=== PATIENT | female | born 1965 | race African-American/Black ===

== ENCOUNTER 2019-04-27 20:53 | Inpatient (IN) | payer MEDICAID ==
[~2019-04-27] VITALS: Ht 157.5 cm; Wt 90.7 kg
[~2019-04-27 20:53] MED LIST: LEVO500T2 PO; METR250T PO
[2019-04-27] MEDS ORDERED: MAGNESIUM 2 G PREMIX 50 ML IV STA (21:44)
[2019-04-27] MEDS ORDERED: ALBUTEROL (0.083%) 2.5MG/3ML NEB HHN STA (21:44)
[2019-04-27] MEDS ORDERED: METHYLPREDNISOLONE SOD SUCC 125 MG/2 ML VIAL IV STA (21:44)
[2019-04-27] MEDS ORDERED: IPRATROPIUM BROMIDE (0.02%) 0.5MG/2.5ML NEB HHN STA (21:44)
[2019-04-27] MEDS ORDERED: SODIUM CHLORIDE 0.9% 1000ML BAG (SEPSIS BOLUS) IV ONE (21:45)
[2019-04-27] MEDS ORDERED: PIPERACILLIN/TAZ 3.375G PREMIX 50 ML IV ONE (22:00)
[2019-04-27] MEDS ORDERED: PIPERACILLIN/TAZOBACTAM 3.375 G in DEXT 5% WATER 100 ML IV NR (22:30)
[2019-04-27 22:34] LABS: BASOPHILS % 1.4 % (0.0-2.0); EOSINOPHILS % 2.1 % (0.0-5.0); HEMOGLOBIN. 13.7 g/dL (12.0-16.0); LYMPHOCYTES % 34.1 % (20.0-50.0); MEAN CORPUSCULAR HEMOGLOBIN 30.9 pg (28.0-32.0); MEAN CORPUSCULAR VOLUME 92.7 fL (81.0-99.0); MEAN PLATELET VOLUME 10.3 fl (7.4-10.4); MONOCYTES % 6.6 % (2.0-8.0); NEUTROPHILS % 55.8 % (40.0-76.0); PLATELET 231 x1000/uL (130-400); RED BLOOD CELL COUNT 4.42 mill/uL (4.2-5.4)
[2019-04-27 22:40] LABS: INR 0.9; PROTHROMBIN TIME 9.5 sec (9.6-11.0)
[2019-04-27 22:46] LABS: CHLORIDE 104 mEq/L (98-107)
[2019-04-27 22:50] LABS: ETHANOL BLOOD 95 mg/dL
[2019-04-27 23:42] LABS: CLARITY URINE CLOUDY (CLEAR); COLOR URINE YELLOW (YELLOW); KETONES URINE 1+ (NEGATIVE); LEUKOCYTE ESTERASE URINE TRACE (NEGATIVE); NITRITE URINE NEGATIVE (NEGATIVE); OCCULT BLOOD URINE NEGATIVE (NEGATIVE); PROTEIN URINE 1+ (NEGATIVE); SPECIFIC GRAVITY URINE 1.024 (1.005-1.030)
[2019-04-27 23:55] LABS: *AMPHETAMINES SCREEN URINE NEGATIVE (NEGATIVE); *BARBITURATES SCREEN URINE NEGATIVE (NEGATIVE); *BENZODIAZEPINES SCREEN URINE NEGATIVE (NEGATIVE); *COCAINE SCREEN URINE NEGATIVE (NEGATIVE); CANNABINOID URINE SCREEN PRESUMTIVE POSITIVE (NEGATIVE); METHADONE URINE SCREEN NEGATIVE (NEGATIVE); OPIATES URINE SCREEN NEGATIVE (NEGATIVE); PHENCYCLIDINE URINE SCREEN NEGATIVE (NEGATIVE)
[2019-04-28] VITALS (9 sets, daily range): BP systolic 118–175; BP diastolic 76–105
[2019-04-28] MEDS ORDERED: ONDANSETRON HCL 4MG/2ML INJ IV PRN (01:00)
[2019-04-28] MEDS ORDERED: ACETAMINOPHEN 325MG TABLET PO PRN (01:00)
[2019-04-28] MEDS ORDERED: NON FORMULARY PATIENT HOME MED XX SCH (01:15)
[2019-04-28] MEDS ORDERED: BUDESONIDE 0.5MG/2ML NEB HHN SCH (01:17)
[2019-04-28] MEDS ORDERED: ALBUTEROL (0.083%) 2.5MG/3ML NEB HHN SCH (01:18)
[2019-04-28] MEDS: HYDROCODONE/ACETAMINOPHEN 5/325MG TABLET PO PRN ×3 (01:19→21:01)
[2019-04-28] MEDS: METHYLPREDNISOLONE SOD SUCC 40 MG/ML VIAL IV SCH ×4 (01:21→21:00)
[2019-04-28] MEDS: LEVOFLOXACIN 500MG PREMIX 100 ML IV SCH (01:55)
[2019-04-28] MEDS: IPRATROPIUM/ALBUTEROL 0.5-3(2.5)MG/3ML NEB HHN SCH ×5 (02:03→19:30)
[2019-04-28] MEDS ORDERED: OMEP20TA2 PO (02:54)
[2019-04-28] MEDS ORDERED: LEVE750T10 PO (02:54)
[2019-04-28] MEDS ORDERED: ARIP5TAB19 PO (02:54)
[2019-04-28] MEDS ORDERED: CARB200T6 PO (02:54)
[2019-04-28] MEDS ORDERED: IPRA42SP BOTHNSTRLS (02:59)
[2019-04-28] MEDS: OMEPRAZOLE 20MG CAPSULE EXTENDED RELEASE PO SCH (06:35)
[2019-04-28] MEDS: CARBAMAZEPINE 200MG TABLET PO SCH ×3 (08:39→17:00)
[2019-04-28] MEDS: ARIPIPRAZOLE 5MG TABLET PO SCH ×2 (08:40→17:00)
[2019-04-28] MEDS: LEVETIRACETAM 250MG TABLET PO SCH ×2 (08:43→17:00)
[2019-04-28] MEDS ORDERED: MEDICATION NOT ON FORMULARY EA (Levetiracetam 750 MG) PO SCH (09:00)
[2019-04-28] MEDS ORDERED: MEDICATION NOT ON FORMULARY EA (Omeprazole 20 MG) PO SCH (09:00)
[2019-04-28] MEDS ORDERED: AMLODIPINE 5MG TABLET PO SCH (09:00)
[2019-04-28 09:53] LABS: HEMATOCRIT 38.8 % (36.0-48.0); MEAN CORPUSCULAR HEMOGLOBIN 31.1 pg (28.0-32.0); PLATELET 192 x1000/uL (130-400); RED BLOOD CELL COUNT 4.17 mill/uL (4.2-5.4); RED CELL DISTRIBUTION WIDTH 14.7 % (11.6-14.6)
[2019-04-28 10:02] LABS: CHLORIDE 104 mEq/L (98-107)
[2019-04-28] MEDS ORDERED: CLONIDINE 0.1MG TABLET PO PRN (14:15)
[2019-04-28] MEDS: AMLODIPINE 5MG TABLET PO SCH ×2 (15:46→20:59)
[2019-04-28] MEDS: LOSARTAN POTASSIUM 50 MG TABLET PO SCH (15:47)
[2019-04-28] MEDS: GUAIFENESIN 600MG ER TABLET PO SCH ×2 (17:22→20:59)
[2019-04-29] VITALS: BP 117/84
[2019-04-29] MEDS: IPRATROPIUM/ALBUTEROL 0.5-3(2.5)MG/3ML NEB HHN SCH ×4 (02:10→16:24)
[2019-04-29] MEDS: LEVOFLOXACIN 500MG PREMIX 100 ML IV SCH (02:59)
[2019-04-29 04:00] VITALS: BP 122/76
[2019-04-29] MEDS: METHYLPREDNISOLONE SOD SUCC 40 MG/ML VIAL IV SCH ×2 (06:32→14:20)
[2019-04-29] MEDS: OMEPRAZOLE 20MG CAPSULE EXTENDED RELEASE PO SCH (06:32)
[2019-04-29 08:00] VITALS: BP 131/83
[2019-04-29] MEDS: ARIPIPRAZOLE 5MG TABLET PO SCH (09:00)
[2019-04-29] MEDS: LEVETIRACETAM 250MG TABLET PO SCH (09:00)
[2019-04-29] MEDS: CARBAMAZEPINE 200MG TABLET PO SCH ×3 (09:00→16:18)
[2019-04-29] MEDS ORDERED: THIAMINE HCL 100MG TABLET PO SCH (09:00)
[2019-04-29] MEDS: AMLODIPINE 5MG TABLET PO SCH (09:17)
[2019-04-29] MEDS: LOSARTAN POTASSIUM 50 MG TABLET PO SCH (09:17)
[2019-04-29] MEDS: GUAIFENESIN 600MG ER TABLET PO SCH (09:17)
[2019-04-29 12:00] VITALS: BP 130/88
[2019-04-29] MEDS: HYDROCODONE/ACETAMINOPHEN 5/325MG TABLET PO PRN (14:23)
[2019-04-29] MEDS ORDERED: FLUT1DIS3 INH (15:17)
[2019-04-29] MEDS ORDERED: LOSA100T32 MT (15:17)
[2019-04-29] MEDS ORDERED: ALBU18HF2 IH (15:17)
[2019-04-29] MEDS ORDERED: IPRA3AMP9 NEB (15:17)
[2019-04-29 16:00] VITALS: BP 122/78
[2019-04-29 16:43] VITALS: BP 122/78
[2019-04-29] MEDS ORDERED: FAMOTIDINE 20MG TABLET PO SCH (21:00)
== END 2019-04-29 17:25 | disposition home or self-care (01) | DRG 720 ==
LOC: ER 20:53 → 8WST 23:20 → EDBEDREQTM 23:25 → EDBEDREQSVC 23:25 → EDBEDREQ 23:25 → ENRESERV 23:29
PROVIDERS: ADMIT Internal Medicine; ATTEND Internal Medicine
DX: A41.9 Sepsis, unspecified organism (principal); J96.00 Acute respiratory failure, unspecified whether with hypoxia or hypercapnia; E87.2 Acidosis; J68.0 Bronchitis and pneumonitis due to chemicals, gases, fumes and vapors; I48.91 Unspecified atrial fibrillation; G40.909 Epilepsy, unspecified, not intractable, without status epilepticus; E66.9 Obesity, unspecified; T40.7X1A Poisoning by cannabis (derivatives), accidental (unintentional), initial encounter; F12.90 Cannabis use, unspecified, uncomplicated; J06.9 Acute upper respiratory infection, unspecified; R74.0 Nonspecific elevation of levels of transaminase and lactic acid dehydrogenase [LDH]; I10 Essential (primary) hypertension; F10.10 Alcohol abuse, uncomplicated; Z71.3 Dietary counseling and surveillance; Z87.891 Personal history of nicotine dependence; Y92.89 Other specified places as the place of occurrence of the external cause; Z79.899 Other long term (current) drug therapy; Z68.36 Body mass index [BMI] 36.0-36.9, adult
CPT/HCPCS: 36415; 71045; 80048; 80305; 80320; 81003; 83605; 83880; 84145; 84484; 85027; 87804; 93005; 94640; 94644; 96365; 99291; J1956; J2543; J2920; J2930; J3475; J7030; J7060; J7611; J7620; G0480

== ENCOUNTER 2019-05-30 01:45 | Emergency (ER) | payer MEDICAID ==
[~2019-05-30] VITALS: Ht 157.5 cm; Wt 91.0 kg
[~2019-05-30 01:45] MED LIST changes: +ALBU18HF2 IH; +ARIP5TAB19 PO; +CARB200T6 PO; +FLUT1DIS3 INH; +IPRA3AMP9 NEB; +IPRA42SP BOTHNSTRLS; +LEVE750T10 PO; -LEVO500T2 PO; +LOSA100T32 MT; -METR250T PO; +OMEP20TA2 PO
[2019-05-30 01:49] VITALS: BP 145/93
== END 2019-05-30 04:09 | disposition left against medical advice (07) ==
LOC: ER 02:10
DX: M25.561 Pain in right knee (principal); Z53.21 Procedure and treatment not carried out due to patient leaving prior to being seen by health care provider

== ENCOUNTER 2020-07-20 03:13 | Emergency (ER) | payer MEDICAID ==
[~2020-07-20] VITALS: Ht 175.3 cm; Wt 80.0 kg
[~2020-07-20 03:13] MED LIST changes: -ARIP5TAB19 PO; +ARIP5TAB58 PO
[2020-07-20] MEDS ORDERED: KETOROLAC 30MG/ML VIAL IV STA (03:41)
[2020-07-20 04:03] LABS: BASOPHILS % 0.8 % (0.0-2.0); EOSINOPHILS % 1.8 % (0.0-5.0); HEMATOCRIT. 40.7 % (36.0-48.0); HEMOGLOBIN. 13.1 g/dL (12.0-16.0); LYMPHOCYTES % 48.3 % (20.0-50.0); MEAN CORPUSCULAR HEMOGLOBIN 34.5 pg (28.0-32.0); MEAN CORPUSCULAR VOLUME 107.6 fL (81.0-99.0); MEAN PLATELET VOLUME 9.9 fl (7.4-10.4); MONOCYTES % 6.1 % (2.0-8.0); PLATELET 234 x1000/uL (130-400); RED BLOOD CELL COUNT 3.78 mill/uL (4.2-5.4); RED CELL DISTRIBUTION WIDTH 15.4 % (11.6-14.6)
[2020-07-20 04:13] LABS: CHLORIDE 98 mEq/L (98-107)
[2020-07-20 05:30] VITALS: BP 138/91
== END 2020-07-20 07:17 | disposition home or self-care (01) ==
LOC: ER 03:13
DX: S20.219A Contusion of unspecified front wall of thorax, initial encounter (principal); J45.909 Unspecified asthma, uncomplicated; Z79.899 Other long term (current) drug therapy; Y04.0XXA Assault by unarmed brawl or fight, initial encounter; Y93.89 Activity, other specified; Y92.89 Other specified places as the place of occurrence of the external cause; Y99.8 Other external cause status
CPT/HCPCS: 36415; 71045; 80053; 84484; 85025; 93005; 96374; 99285; J1885

== ENCOUNTER 2020-08-25 19:07 | Inpatient (IN) | payer MEDICAID ==
[~2020-08-25] VITALS: Ht 157.5 cm; Wt 80.5 kg
[2020-08-25 20:16] LABS: BASOPHILS % 0.5 % (0.0-2.0); EOSINOPHILS % 1.2 % (0.0-5.0); HEMATOCRIT. 38.9 % (36.0-48.0); HEMOGLOBIN. 12.9 g/dL (12.0-16.0); LYMPHOCYTES % 35.1 % (20.0-50.0); MEAN CORPUSCULAR HEMOGLOBIN 34.5 pg (28.0-32.0); MEAN CORPUSCULAR VOLUME 103.6 fL (81.0-99.0); MEAN PLATELET VOLUME 10.7 fl (7.4-10.4); NEUTROPHILS % 55.2 % (40.0-76.0); PLATELET 277 x1000/uL (130-400); RED BLOOD CELL COUNT 3.75 mill/uL (4.2-5.4); RED CELL DISTRIBUTION WIDTH 16.9 % (11.6-14.6)
[2020-08-25 20:24] LABS: CHLORIDE 107 mEq/L (98-107)
[2020-08-25 20:32] LABS: PROTHROMBIN TIME 10.6 sec (9.6-11.0)
[2020-08-25 20:47] LABS: CLARITY URINE CLOUDY (CLEAR); COLOR URINE DARK YELLOW (YELLOW); KETONES URINE 1+ (NEGATIVE); LEUKOCYTE ESTERASE URINE 1+ (NEGATIVE); NITRITE URINE NEGATIVE (NEGATIVE); OCCULT BLOOD URINE NEGATIVE (NEGATIVE); PROTEIN URINE 1+ (NEGATIVE); SPECIFIC GRAVITY URINE 1.028 (1.005-1.030)
[2020-08-25] MEDS ORDERED: MORPHINE SULFATE 4 MG/ML CPJ (NOT FOR IM USE) IV ONE (21:15)
[2020-08-25] MEDS ORDERED: IOHEXOL-300 100 ML BOTTLE ONE (22:13)
[2020-08-25] MEDS ORDERED: CEFTRIAXONE 1 G PREMIX 50 ML IV ONE (22:30)
[2020-08-25] MEDS ORDERED: KCL 10MEQ/50ML PREMIX 50 ML IV ONE (22:30)
[2020-08-26] MEDS: HYDROCODONE/ACETAMINOPHEN 5/325MG TABLET PO PRN ×3 (02:57→21:02)
[2020-08-26] MEDS ORDERED: HYDROCODONE/ACETAMINOPHEN 5/325MG TABLET PO PRN (08:00)
[2020-08-26] MEDS ORDERED: ACETAMINOPHEN 325MG TABLET PO PRN (08:00)
[2020-08-26] MEDS ORDERED: DOCUSATE SODIUM 100MG CAPSULE PO PRN (08:00)
[2020-08-26] MEDS ORDERED: LACTULOSE 20G/30ML UDC PO SCH (08:00)
[2020-08-26] MEDS ORDERED: CLONIDINE 0.1MG TABLET PO PRN (08:00)
[2020-08-26] MEDS ORDERED: MAGNESIUM/ALUMINUM HYDROXIDE/SIMETHICONE 30ML UDC PO PRN (08:00)
[2020-08-26 08:36] LABS: HEMATOCRIT 37.9 % (36.0-48.0); HEMOGLOBIN 12.1 g/dL (12.0-16.0); MEAN CORPUSCULAR HEMOGLOBIN 33.2 pg (28.0-32.0); MEAN CORPUSCULAR VOLUME 103.5 fL (81.0-99.0); PLATELET 229 x1000/uL (130-400); RED BLOOD CELL COUNT 3.66 mill/uL (4.2-5.4); RED CELL DISTRIBUTION WIDTH 16.9 % (11.6-14.6)
[2020-08-26 08:42] LABS: CHLORIDE 104 mEq/L (98-107)
[2020-08-26] MEDS: ENOXAPARIN 40MG/0.4ML SYR SUBCUT SCH (10:33)
[2020-08-26] MEDS: OMEPRAZOLE 20MG CAPSULE EXTENDED RELEASE PO SCH (10:34)
[2020-08-26 12:00] VITALS: BP 138/89
[2020-08-26 13:31] VITALS: BP 134/84
[2020-08-26] MEDS ORDERED: DOCUSATE SODIUM 250MG CAPSULE PO PRN (15:15)
[2020-08-26 16:00] VITALS: BP 130/80
[2020-08-26] MEDS: CEFTRIAXONE 1,000 MG in DEXTROSE 5% WATER 50 ML IV SCH (19:48)
[2020-08-26 20:00] VITALS: BP 140/80
[2020-08-26] MEDS ORDERED: CEFTRIAXONE 1 G PREMIX 50 ML IV SCH (21:00)
[2020-08-27] VITALS: BP 130/70
[2020-08-27 04:00] VITALS: BP 111/71
[2020-08-27] MEDS: OMEPRAZOLE 20MG CAPSULE EXTENDED RELEASE PO SCH ×2 (07:10→18:19)
[2020-08-27 07:50] LABS: BASOPHILS % 0.9 % (0.0-2.0); EOSINOPHILS % 2.4 % (0.0-5.0); HEMOGLOBIN. 12.1 g/dL (12.0-16.0); LYMPHOCYTES % 36.7 % (20.0-50.0); MEAN CORPUSCULAR HEMOGLOBIN 33.9 pg (28.0-32.0); MEAN PLATELET VOLUME 10.5 fl (7.4-10.4); MONOCYTES % 8.6 % (2.0-8.0); NEUTROPHILS % 51.4 % (40.0-76.0); PLATELET 243 x1000/uL (130-400); RED BLOOD CELL COUNT 3.56 mill/uL (4.2-5.4); RED CELL DISTRIBUTION WIDTH 16.8 % (11.6-14.6)
[2020-08-27 07:57] LABS: CHLORIDE 107 mEq/L (98-107)
[2020-08-27 08:00] VITALS: BP 123/74
[2020-08-27 08:04] LABS: PHOSPHORUS 3.7 mg/dL (2.5-4.9)
[2020-08-27] MEDS: ENOXAPARIN 40MG/0.4ML SYR SUBCUT SCH (08:39)
[2020-08-27] MEDS: HYDROCODONE/ACETAMINOPHEN 5/325MG TABLET PO PRN ×2 (11:00→18:19)
[2020-08-27 12:00] VITALS: BP_SYST 128; BP_SYST 131; BP_DIAS 69; BP_DIAS 91
[2020-08-27 13:18] LABS: HEPATITIS B SURFACE ANTIGEN NEGATIVE
[2020-08-27 13:48] LABS: HEPATITIS A AB IGM NEGATIVE (NEGATIVE)
[2020-08-27 16:00] VITALS: BP 154/86
[2020-08-27] MEDS: CEFTRIAXONE 1,000 MG in DEXTROSE 5% WATER 50 ML IV SCH (18:20)
[2020-08-27 20:00] VITALS: BP 129/71
[2020-08-28] VITALS: BP 141/80
[2020-08-28 04:00] VITALS: BP 138/78
[2020-08-28] MEDS: HYDROCODONE/ACETAMINOPHEN 5/325MG TABLET PO PRN ×4 (04:56→23:23)
[2020-08-28 08:00] VITALS: BP 125/78
[2020-08-28 09:33] LABS: CHLORIDE 106 mEq/L (98-107)
[2020-08-28 10:17] LABS: BASOPHILS % 0.2 % (0.0-2.0); EOSINOPHILS % 1.6 % (0.0-5.0); HEMATOCRIT. 36.8 % (36.0-48.0); LYMPHOCYTES % 37.2 % (20.0-50.0); MEAN CORPUSCULAR VOLUME 104.5 fL (81.0-99.0); MEAN PLATELET VOLUME 11.5 fl (7.4-10.4); MONOCYTES % 7.8 % (2.0-8.0); NEUTROPHILS % 53.2 % (40.0-76.0); PLATELET 217 x1000/uL (130-400); RED BLOOD CELL COUNT 3.52 mill/uL (4.2-5.4); RED CELL DISTRIBUTION WIDTH 17.5 % (11.6-14.6)
[2020-08-28 12:00] VITALS: BP 139/90
[2020-08-28] MEDS: ENOXAPARIN 40MG/0.4ML SYR SUBCUT SCH (12:14)
[2020-08-28] MEDS ORDERED: POTASSIUM CHLORIDE 20MEQ TABLET SR PO NR (13:45)
[2020-08-28 16:00] VITALS: BP 141/100
[2020-08-28] MEDS: CEFTRIAXONE 1,000 MG in DEXTROSE 5% WATER 50 ML IV SCH (17:53)
[2020-08-28 20:00] VITALS: BP 130/66
[2020-08-29] VITALS: BP 148/81
[2020-08-29 04:00] VITALS: BP 100/60
[2020-08-29] MEDS: OMEPRAZOLE 20MG CAPSULE EXTENDED RELEASE PO SCH (05:59)
[2020-08-29] MEDS: HYDROCODONE/ACETAMINOPHEN 5/325MG TABLET PO PRN ×4 (06:15→22:13)
[2020-08-29 08:00] VITALS: BP 121/65
[2020-08-29] MEDS: ENOXAPARIN 40MG/0.4ML SYR SUBCUT SCH (09:17)
[2020-08-29 09:28] LABS: BASOPHILS % 0.2 % (0.0-2.0); EOSINOPHILS % 2.1 % (0.0-5.0); HEMATOCRIT. 39.3 % (36.0-48.0); HEMOGLOBIN. 12.6 g/dL (12.0-16.0); LYMPHOCYTES % 52.9 % (20.0-50.0); MEAN CORPUSCULAR HEMOGLOBIN 33.8 pg (28.0-32.0); MEAN CORPUSCULAR VOLUME 105.5 fL (81.0-99.0); MEAN PLATELET VOLUME 11.4 fl (7.4-10.4); MONOCYTES % 10.7 % (2.0-8.0); NEUTROPHILS % 34.1 % (40.0-76.0); PLATELET 227 x1000/uL (130-400); RED BLOOD CELL COUNT 3.73 mill/uL (4.2-5.4); RED CELL DISTRIBUTION WIDTH 17.4 % (11.6-14.6)
[2020-08-29 09:54] LABS: CHLORIDE 107 mEq/L (98-107)
[2020-08-29 12:00] VITALS: BP 125/71
[2020-08-29 16:00] VITALS: BP 131/78
[2020-08-29] MEDS: CEFTRIAXONE 1,000 MG in DEXTROSE 5% WATER 50 ML IV SCH (17:37)
[2020-08-29 20:00] VITALS: BP 144/94
[2020-08-30] VITALS (7 sets, daily range): BP systolic 101–139; BP diastolic 62–92
[2020-08-30] MEDS: HYDROCODONE/ACETAMINOPHEN 5/325MG TABLET PO PRN ×4 (05:40→20:15)
[2020-08-30] MEDS: OMEPRAZOLE 20MG CAPSULE EXTENDED RELEASE PO SCH (06:45)
[2020-08-30] MEDS: ENOXAPARIN 40MG/0.4ML SYR SUBCUT SCH (08:39)
[2020-08-30] MEDS: LIDOCAINE 5% PATCH TOP SCH (08:39)
[2020-08-30] MEDS ORDERED: HYDR-4001 PO (13:31)
[2020-08-30] MEDS ORDERED: LACTULOSE 20G/30ML UDC PO PRN (15:30)
[2020-08-30] MEDS ORDERED: LACTULOSE 20G/30ML UDC PO NR (15:30)
[2020-08-31] VITALS: BP 143/93
[2020-08-31] MEDS: HYDROCODONE/ACETAMINOPHEN 5/325MG TABLET PO PRN (00:07)
[2020-08-31 04:00] VITALS: BP 111/48
[2020-08-31] MEDS: OMEPRAZOLE 20MG CAPSULE EXTENDED RELEASE PO SCH (06:37)
[2020-08-31 08:00] VITALS: BP 117/77
[2020-08-31] MEDS: ENOXAPARIN 40MG/0.4ML SYR SUBCUT SCH (08:22)
[2020-08-31] MEDS: LIDOCAINE 5% PATCH TOP SCH (08:22)
[2020-08-31] MEDS ORDERED: HYDROCODONE/ACETAMINOPHEN 5/325MG TABLET PO PRN (10:00)
[2020-08-31 12:00] VITALS: BP 122/80
[2020-08-31 12:34] VITALS: BP 122/80
== END 2020-08-31 15:35 | disposition home or self-care (01) | DRG 249 ==
LOC: ER 19:07 → 8WST 21:01 → ENRESERV 08-26 08:02 → EDBEDREQ 08-26 08:47
PROVIDERS: ADMIT Internal Medicine; ATTEND Internal Medicine
DX: K52.9 Noninfective gastroenteritis and colitis, unspecified (principal); E46 Unspecified protein-calorie malnutrition; E66.01 Morbid (severe) obesity due to excess calories; K83.8 Other specified diseases of biliary tract; M48.56XA Collapsed vertebra, not elsewhere classified, lumbar region, initial encounter for fracture; K21.9 Gastro-esophageal reflux disease without esophagitis; J45.909 Unspecified asthma, uncomplicated; G40.909 Epilepsy, unspecified, not intractable, without status epilepticus; E87.6 Hypokalemia; I10 Essential (primary) hypertension; N39.0 Urinary tract infection, site not specified; K59.00 Constipation, unspecified; R74.01 Elevation of levels of liver transaminase levels; Z90.49 Acquired absence of other specified parts of digestive tract; Z79.899 Other long term (current) drug therapy; Z71.3 Dietary counseling and surveillance; Z68.32 Body mass index [BMI] 32.0-32.9, adult
CPT/HCPCS: 36415; 72148; 74177; 76700; 80048; 80053; 80076; 81003; 83735; 84100; 84484; 85025; 85027; 86705; 86709; 86803; 87340; 97116; 97162; 97535; 99285; J0696; J1650; J2270; J3480; J7060; Q9967

== ENCOUNTER 2022-02-25 10:14 | Emergency (ER) | payer MEDICAID ==
[~2022-02-25] VITALS: Ht 170.2 cm; Wt 91.0 kg
[~2022-02-25 10:14] MED LIST changes: +HYDR-4001 PO; -OMEP20TA2 PO; +OMEP20TA23 PO
[2022-02-25] MEDS ORDERED: ONDANSETRON 4MG ODT PO STA (10:23)
[2022-02-25] MEDS ORDERED: MAGNESIUM/ALUMINUM HYDROXIDE/SIMETHICONE 30ML UDC PO STA (10:23)
[2022-02-25 11:33] LABS: BASOPHILS % 0.3 % (0.0-2.0); EOSINOPHILS % 0.1 % (0.0-5.0); HEMATOCRIT. 37.1 % (36.0-48.0); HEMOGLOBIN. 12.2 g/dL (12.0-16.0); LYMPHOCYTES % 14.3 % (20.0-50.0); MEAN CORPUSCULAR HEMOGLOBIN 37.7 pg (28.0-32.0); MEAN CORPUSCULAR VOLUME 114.6 fL (81.0-99.0); MEAN PLATELET VOLUME 10.8 fl (7.4-10.4); MONOCYTES % 6.5 % (2.0-8.0); NEUTROPHILS % 78.8 % (40.0-76.0); PLATELET 170 x1000/uL (130-400); RED BLOOD CELL COUNT 3.23 mill/uL (4.2-5.4); RED CELL DISTRIBUTION WIDTH 17.4 % (11.6-14.6)
[2022-02-25 11:40] LABS: CHLORIDE 102 mEq/L (98-107)
[2022-02-25] MEDS ORDERED: KETOROLAC 60MG/2ML VIAL IM ONE (11:45)
[2022-02-25 12:09] LABS: PLATELET ESTIMATE NORMAL
[2022-02-25] MEDS ORDERED: KETOROLAC 15MG/ML VIAL IV ONE (12:30)
[2022-02-25] MEDS ORDERED: ONDA4TAB50 MT (14:10)
[2022-02-25] MEDS ORDERED: OMEP40CA20 MT (14:10)
[2022-02-25 14:51] VITALS: BP 108/72
== END 2022-02-25 14:53 | disposition home or self-care (01) ==
LOC: ER 10:18
DX: R10.9 Unspecified abdominal pain (principal); R11.2 Nausea with vomiting, unspecified; J45.909 Unspecified asthma, uncomplicated; K21.9 Gastro-esophageal reflux disease without esophagitis; I10 Essential (primary) hypertension; R56.9 Unspecified convulsions
CPT/HCPCS: 36415; 74176; 80053; 83690; 85025; 96372; 96374; 99284; J1885; Q0162

== ENCOUNTER 2022-03-21 13:29 | Inpatient (IN) | payer MEDICAID ==
[~2022-03-21] VITALS: Ht 157.5 cm; Wt 67.6 kg
[~2022-03-21 13:29] MED LIST changes: +OMEP40CA20 MT; +ONDA4TAB50 MT
[2022-03-21] MEDS ORDERED: SODIUM CHLORIDE 0.9% 500 ML IV ONE (14:30)
[2022-03-21 15:39] LABS: BASOPHILS % 0.8 % (0.0-2.0); EOSINOPHILS % 0.9 % (0.0-5.0); HEMATOCRIT. 34.2 % (36.0-48.0); HEMOGLOBIN. 11.6 g/dL (12.0-16.0); LYMPHOCYTES % 50.9 % (20.0-50.0); MEAN CORPUSCULAR HEMOGLOBIN 37.6 pg (28.0-32.0); MEAN CORPUSCULAR VOLUME 111.3 fL (81.0-99.0); MEAN PLATELET VOLUME 11.2 fl (7.4-10.4); NEUTROPHILS % 35.4 % (40.0-76.0); PLATELET 204 x1000/uL (130-400); RED BLOOD CELL COUNT 3.08 mill/uL (4.2-5.4); RED CELL DISTRIBUTION WIDTH 16.4 % (11.6-14.6)
[2022-03-21 16:01] LABS: CHLORIDE 100 mEq/L (98-107)
[2022-03-21 16:40] LABS: PLATELET ESTIMATE NORMAL
[2022-03-21] MEDS: CYANOCOBALAMIN 1000MCG/ML VIAL IM SCH (18:12)
[2022-03-21] MEDS ORDERED: IPRATROPIUM/ALBUTEROL 0.5-3(2.5)MG/3ML NEB HHN PRN (19:30)
[2022-03-21] MEDS ORDERED: ONDANSETRON HCL 4MG/2ML INJ IV PRN (19:30)
[2022-03-21] MEDS ORDERED: NALOXONE HCL 0.4MG/ML VIAL IV PRN (19:45)
[2022-03-22] VITALS (7 sets, daily range): BP systolic 105–163; BP diastolic 61–97
[2022-03-22] MEDS: CLONIDINE 0.1MG TABLET PO PRN (04:27)
[2022-03-22 06:37] LABS: EOSINOPHILS % 1.1 % (0.0-5.0); HEMATOCRIT. 32.7 % (36.0-48.0); HEMOGLOBIN. 10.9 g/dL (12.0-16.0); LYMPHOCYTES % 44.4 % (20.0-50.0); MEAN CORPUSCULAR HEMOGLOBIN 37.9 pg (28.0-32.0); MEAN CORPUSCULAR VOLUME 113.2 fL (81.0-99.0); MEAN PLATELET VOLUME 11.2 fl (7.4-10.4); MONOCYTES % 12.6 % (2.0-8.0); NEUTROPHILS % 40.9 % (40.0-76.0); PLATELET 194 x1000/uL (130-400); RED BLOOD CELL COUNT 2.89 mill/uL (4.2-5.4)
[2022-03-22 08:50] LABS: CHLORIDE 106 mEq/L (98-107)
[2022-03-22] MEDS: CYANOCOBALAMIN 1000MCG/ML VIAL IM SCH (09:21)
[2022-03-22] MEDS ORDERED: POTASSIUM CHLORIDE 20MEQ/PACKET PO NR (10:15)
[2022-03-22] MEDS ORDERED: POTASSIUM CHLORIDE INJ 40 MEQ in DEXT 5% WATER 250 ML IV ONE (10:15)
[2022-03-22] MEDS ORDERED: LORAZEPAM 2MG/ML CPJ IV PRN (13:30)
[2022-03-22] MEDS: KCL 20MEQ/100ML X 2 FOR TOTAL KCL 40MEQ/200ML IV SCH ×2 (13:52→15:50)
[2022-03-22] MEDS: ACETAMINOPHEN 325MG TABLET PO PRN (13:54)
[2022-03-22] MEDS: LOSARTAN POTASSIUM 100 MG TABLET PO SCH (15:50)
[2022-03-22] MEDS ORDERED: ARIPIPRAZOLE 5MG TABLET PO SCH (17:00)
[2022-03-22] MEDS: CHLORDIAZEPOXIDE 25MG CAPSULE PO SCH (21:08)
[2022-03-22] MEDS: LEVETIRACETAM 500MG TABLET PO SCH (21:20)
[2022-03-23] VITALS: BP 110/80
[2022-03-23 04:00] VITALS: BP 105/74
[2022-03-23] MEDS: CHLORDIAZEPOXIDE 25MG CAPSULE PO SCH ×5 (05:36→21:00)
[2022-03-23] MEDS: CYANOCOBALAMIN 1000MCG/ML VIAL IM SCH (09:47)
[2022-03-23] MEDS: LEVETIRACETAM 500MG TABLET PO SCH ×2 (09:48→20:55)
[2022-03-23] MEDS: OMEPRAZOLE 20MG CAPSULE EXTENDED RELEASE PO SCH (09:48)
[2022-03-23] MEDS: LOSARTAN POTASSIUM 100 MG TABLET PO SCH (09:49)
[2022-03-23 12:00] VITALS: BP 113/77
[2022-03-23 16:00] VITALS: BP 113/73
[2022-03-23 17:38] LABS: BASOPHILS % 0.5 % (0.0-2.0); EOSINOPHILS % 2.9 % (0.0-5.0); HEMATOCRIT. 32.8 % (36.0-48.0); HEMOGLOBIN. 10.9 g/dL (12.0-16.0); LYMPHOCYTES % 60.1 % (20.0-50.0); MEAN CORPUSCULAR HEMOGLOBIN 37.6 pg (28.0-32.0); MEAN CORPUSCULAR VOLUME 112.8 fL (81.0-99.0); MONOCYTES % 8.8 % (2.0-8.0); NEUTROPHILS % 27.7 % (40.0-76.0); PLATELET 222 x1000/uL (130-400); RED CELL DISTRIBUTION WIDTH 16.7 % (11.6-14.6)
[2022-03-23 18:04] LABS: CHLORIDE 109 mEq/L (98-107)
[2022-03-23] MEDS: CARBAMAZEPINE 200MG TABLET PO SCH (18:50)
[2022-03-24] VITALS (7 sets, daily range): BP systolic 97–127; BP diastolic 66–82
[2022-03-24] MEDS: CHLORDIAZEPOXIDE 25MG CAPSULE PO SCH ×3 (05:07→20:36)
[2022-03-24] MEDS: LOSARTAN POTASSIUM 100 MG TABLET PO SCH (08:16)
[2022-03-24] MEDS: OMEPRAZOLE 20MG CAPSULE EXTENDED RELEASE PO SCH (08:16)
[2022-03-24] MEDS: LEVETIRACETAM 500MG TABLET PO SCH ×2 (08:16→20:36)
[2022-03-24] MEDS: CARBAMAZEPINE 200MG TABLET PO SCH ×3 (09:33→16:37)
[2022-03-24 14:43] LABS: PROTHROMBIN TIME 10.4 sec (9.6-11.0)
[2022-03-24] MEDS ORDERED: *PATIENT'S OWN MEDICATION STORAGE XX SCH (21:45)
[2022-03-25] MEDS: MORPHINE SULFATE 2 MG/ML CPJ (NOT FOR IM USE) IV PRN ×2 (00:04→05:34)
[2022-03-25 04:00] VITALS: BP 99/62
[2022-03-25] MEDS: CHLORDIAZEPOXIDE 25MG CAPSULE PO SCH ×3 (05:31→20:59)
[2022-03-25 08:00] VITALS: BP_SYST 107; BP_SYST 121; BP_DIAS 72; BP_DIAS 75
[2022-03-25 08:31] LABS: BASOPHILS % 0.4 % (0.0-2.0); EOSINOPHILS % 2.9 % (0.0-5.0); HEMATOCRIT. 32.3 % (36.0-48.0); HEMOGLOBIN. 10.5 g/dL (12.0-16.0); LYMPHOCYTES % 47.3 % (20.0-50.0); MEAN CORPUSCULAR VOLUME 113.5 fL (81.0-99.0); MEAN PLATELET VOLUME 11.2 fl (7.4-10.4); NEUTROPHILS % 41.4 % (40.0-76.0); PLATELET 208 x1000/uL (130-400); RED BLOOD CELL COUNT 2.85 mill/uL (4.2-5.4); RED CELL DISTRIBUTION WIDTH 17.2 % (11.6-14.6)
[2022-03-25] MEDS: CARBAMAZEPINE 200MG TABLET PO SCH ×3 (08:44→17:10)
[2022-03-25] MEDS: LOSARTAN POTASSIUM 100 MG TABLET PO SCH (08:44)
[2022-03-25] MEDS: LEVETIRACETAM 500MG TABLET PO SCH ×2 (08:44→20:59)
[2022-03-25] MEDS: FAMOTIDINE 20MG TABLET PO SCH ×2 (08:44→20:59)
[2022-03-25 08:57] LABS: CHLORIDE 110 mEq/L (98-107)
[2022-03-25 12:00] VITALS: BP 95/57
[2022-03-25] MEDS ORDERED: POTASSIUM CHLORIDE 20MEQ TABLET SR PO NR (13:00)
[2022-03-25 14:18] LABS: PLATELET ESTIMATE NORMAL
[2022-03-25 16:00] VITALS: BP 102/68
[2022-03-25 20:22] VITALS: BP 125/87
[2022-03-26] VITALS (7 sets, daily range): BP systolic 125–158; BP diastolic 78–109
[2022-03-26] MEDS: CHLORDIAZEPOXIDE 25MG CAPSULE PO SCH (05:48)
[2022-03-26 06:53] LABS: BASOPHILS % 0.5 % (0.0-2.0); EOSINOPHILS % 1.1 % (0.0-5.0); HEMATOCRIT. 33.5 % (36.0-48.0); HEMOGLOBIN. 11.3 g/dL (12.0-16.0); LYMPHOCYTES % 33.3 % (20.0-50.0); MEAN CORPUSCULAR HEMOGLOBIN 37.7 pg (28.0-32.0); MEAN CORPUSCULAR VOLUME 112.3 fL (81.0-99.0); MEAN PLATELET VOLUME 11.1 fl (7.4-10.4); NEUTROPHILS % 57.1 % (40.0-76.0); PLATELET 246 x1000/uL (130-400); RED BLOOD CELL COUNT 2.98 mill/uL (4.2-5.4); RED CELL DISTRIBUTION WIDTH 17.2 % (11.6-14.6)
[2022-03-26 07:00] LABS: CHLORIDE 111 mEq/L (98-107)
[2022-03-26] MEDS: FAMOTIDINE 20MG TABLET PO SCH ×2 (09:44→20:49)
[2022-03-26] MEDS: LOSARTAN POTASSIUM 100 MG TABLET PO SCH (09:44)
[2022-03-26] MEDS: LEVETIRACETAM 500MG TABLET PO SCH ×2 (09:44→20:49)
[2022-03-26] MEDS: CARBAMAZEPINE 200MG TABLET PO SCH ×3 (09:44→17:00)
[2022-03-26] MEDS ORDERED: NALOXONE HCL 0.4 MG/ML 1ML VIAL IV ONE (12:30)
[2022-03-26 13:29] LABS: BG BASE EXCESS 0.3 mmol/L (-2.0-2.0); BG CARBOXYHEMOGLOBIN 0.1 % (0.5-1.5); BG DEOXYHEMOGLOBIN 3.8 % (0.0-5.0); BG FRACTION INSPIRED OXYGEN 21; BG METHEMOGLOBIN 0.2 % (0.0-1.5); BG OXYGEN SATURATION 96.2 % (92.0-98.5); BG OXYHEMOGLOBIN 95.9 % (94.0-97.0); BG PCO2 35.5 mmHg (35.0-45.0); BG PH 7.447 (7.350-7.450); BG SAMPLE SITE RIGHT BRACHIAL; BG TOTAL HEMOGLOBIN 12.1 g/dL (12.0-18.0); BG VENT MODE ROOM AIR
[2022-03-27 00:22] VITALS: BP 155/105
[2022-03-27 04:00] VITALS: BP 145/100
[2022-03-27 08:00] VITALS: BP 117/54
[2022-03-27] MEDS: CARBAMAZEPINE 200MG TABLET PO SCH ×3 (09:00→17:00)
[2022-03-27] MEDS: LOSARTAN POTASSIUM 100 MG TABLET PO SCH (09:00)
[2022-03-27] MEDS: FAMOTIDINE 20MG TABLET PO SCH ×2 (09:00→20:42)
[2022-03-27] MEDS: LEVETIRACETAM 500MG TABLET PO SCH ×2 (09:00→20:41)
[2022-03-27 12:00] VITALS: BP 150/105
[2022-03-27] MEDS ORDERED: THIAMINE HCL 100 MG in SODIUM CHLORIDE 0.9% 49 ML IV NR (13:30)
[2022-03-27] MEDS: SODIUM CHLORIDE 0.9% 1,000 ML IV SCH (15:43)
[2022-03-27 16:00] VITALS: BP 152/103
[2022-03-27 20:00] VITALS: BP 162/110
[2022-03-27] MEDS: CLONIDINE 0.1MG TABLET PO PRN (20:42)
[2022-03-28] VITALS: BP 146/91
[2022-03-28] MEDS: SODIUM CHLORIDE 0.9% 1,000 ML IV SCH ×2 (01:50→18:00)
[2022-03-28 04:00] VITALS: BP 166/106
[2022-03-28 06:32] LABS: BASOPHILS % 0.5 % (0.0-2.0); EOSINOPHILS % 1.9 % (0.0-5.0); HEMATOCRIT. 37.6 % (36.0-48.0); HEMOGLOBIN. 12.4 g/dL (12.0-16.0); LYMPHOCYTES % 32.1 % (20.0-50.0); MEAN CORPUSCULAR HEMOGLOBIN 37.1 pg (28.0-32.0); MEAN PLATELET VOLUME 10.8 fl (7.4-10.4); MONOCYTES % 8.4 % (2.0-8.0); NEUTROPHILS % 57.1 % (40.0-76.0); PLATELET 260 x1000/uL (130-400); RED BLOOD CELL COUNT 3.33 mill/uL (4.2-5.4); RED CELL DISTRIBUTION WIDTH 16.9 % (11.6-14.6)
[2022-03-28 06:34] LABS: PROTHROMBIN TIME 11.1 sec (9.6-11.0)
[2022-03-28 06:56] LABS: CHLORIDE 109 mEq/L (98-107)
[2022-03-28 08:00] VITALS: BP 154/97
[2022-03-28] MEDS: FAMOTIDINE 20MG TABLET PO SCH ×2 (09:25→21:14)
[2022-03-28] MEDS: LOSARTAN POTASSIUM 100 MG TABLET PO SCH (09:25)
[2022-03-28] MEDS: CARBAMAZEPINE 200MG TABLET PO SCH ×3 (09:25→18:00)
[2022-03-28] MEDS: LEVETIRACETAM 500MG TABLET PO SCH ×2 (09:26→21:14)
[2022-03-28 12:00] VITALS: BP 163/107
[2022-03-28] MEDS ORDERED: THIAMINE HCL 100 MG in SODIUM CHLORIDE 0.9% 49 ML IV NR (13:30)
[2022-03-28 16:00] VITALS: BP 134/72
[2022-03-28 19:56] LABS: CLARITY URINE CLOUDY (CLEAR); COLOR URINE YELLOW (YELLOW); KETONES URINE 1+ (NEGATIVE); LEUKOCYTE ESTERASE URINE 3+ (NEGATIVE); NITRITE URINE NEGATIVE (NEGATIVE); OCCULT BLOOD URINE NEGATIVE (NEGATIVE); PROTEIN URINE NEGATIVE (NEGATIVE); SPECIFIC GRAVITY URINE 1.014 (1.005-1.030); UROBILINOGEN URINE 0.2 E.U./dL (0.2-1.0)
[2022-03-28 20:00] VITALS: BP 155/98
[2022-03-28 20:34] LABS: *AMPHETAMINES SCREEN URINE NEGATIVE (NEGATIVE); *BARBITURATES SCREEN URINE NEGATIVE (NEGATIVE); *BENZODIAZEPINES SCREEN URINE PRESUMTIVE POSITIVE (NEGATIVE); *COCAINE SCREEN URINE NEGATIVE (NEGATIVE); CANNABINOID URINE SCREEN PRESUMTIVE POSITIVE (NEGATIVE); METHADONE URINE SCREEN NEGATIVE (NEGATIVE); OPIATES URINE SCREEN PRESUMTIVE POSITIVE (NEGATIVE); PHENCYCLIDINE URINE SCREEN NEGATIVE (NEGATIVE)
[2022-03-29] VITALS: BP 137/93
[2022-03-29 04:00] VITALS: BP 158/97
[2022-03-29] MEDS: SODIUM CHLORIDE 0.9% 1,000 ML IV SCH (05:25)
[2022-03-29 06:15] LABS: CHLORIDE 111 mEq/L (98-107)
[2022-03-29 06:29] LABS: BASOPHILS % 0.8 % (0.0-2.0); EOSINOPHILS % 2.8 % (0.0-5.0); HEMATOCRIT. 38.4 % (36.0-48.0); HEMOGLOBIN. 12.4 g/dL (12.0-16.0); LYMPHOCYTES % 34.5 % (20.0-50.0); MEAN CORPUSCULAR HEMOGLOBIN 36.7 pg (28.0-32.0); MEAN CORPUSCULAR VOLUME 113.3 fL (81.0-99.0); MEAN PLATELET VOLUME 10.3 fl (7.4-10.4); MONOCYTES % 9.5 % (2.0-8.0); NEUTROPHILS % 52.4 % (40.0-76.0); PLATELET 240 x1000/uL (130-400); RED BLOOD CELL COUNT 3.39 mill/uL (4.2-5.4); RED CELL DISTRIBUTION WIDTH 16.8 % (11.6-14.6)
[2022-03-29 08:00] VITALS: BP 164/129
[2022-03-29] MEDS: CARBAMAZEPINE 200MG TABLET PO SCH ×3 (08:35→17:50)
[2022-03-29] MEDS: FAMOTIDINE 20MG TABLET PO SCH ×2 (08:35→22:20)
[2022-03-29] MEDS: LOSARTAN POTASSIUM 100 MG TABLET PO SCH (08:35)
[2022-03-29] MEDS: LEVETIRACETAM 500MG TABLET PO SCH ×2 (08:35→22:20)
[2022-03-29 12:00] VITALS: BP 164/100
[2022-03-29 16:00] VITALS: BP 167/95
[2022-03-29 20:00] VITALS: BP 139/93
[2022-03-30] VITALS: BP 143/93
[2022-03-30] MEDS ORDERED: TRAM50TA3 MT (03:15)
[2022-03-30] MEDS ORDERED: IBUP-2029 PO (03:15)
[2022-03-30 04:00] VITALS: BP 143/93
[2022-03-30] MEDS: SODIUM CHLORIDE 0.9% 1,000 ML IV SCH ×2 (06:48→22:30)
[2022-03-30 07:38] LABS: BASOPHILS % 0.8 % (0.0-2.0); EOSINOPHILS % 0.8 % (0.0-5.0); HEMATOCRIT. 36.9 % (36.0-48.0); HEMOGLOBIN. 12.1 g/dL (12.0-16.0); MEAN CORPUSCULAR HEMOGLOBIN 36.4 pg (28.0-32.0); MEAN CORPUSCULAR VOLUME 110.4 fL (81.0-99.0); MEAN PLATELET VOLUME 11.6 fl (7.4-10.4); MONOCYTES % 8.8 % (2.0-8.0); NEUTROPHILS % 56.6 % (40.0-76.0); PLATELET 273 x1000/uL (130-400); RED BLOOD CELL COUNT 3.34 mill/uL (4.2-5.4); RED CELL DISTRIBUTION WIDTH 16.6 % (11.6-14.6)
[2022-03-30 08:00] VITALS: BP 161/91
[2022-03-30] MEDS: CARBAMAZEPINE 200MG TABLET PO SCH ×3 (08:36→16:08)
[2022-03-30] MEDS: LOSARTAN POTASSIUM 100 MG TABLET PO SCH (08:36)
[2022-03-30] MEDS: FAMOTIDINE 20MG TABLET PO SCH ×2 (08:36→22:30)
[2022-03-30] MEDS: LEVETIRACETAM 500MG TABLET PO SCH ×2 (08:37→20:23)
[2022-03-30 08:53] LABS: CHLORIDE 110 mEq/L (98-107)
[2022-03-30 12:00] VITALS: BP 158/102
[2022-03-30 16:00] VITALS: BP 152/109
[2022-03-30 20:00] VITALS: BP 138/87
[2022-03-31] VITALS: BP 148/111
[2022-03-31 04:00] VITALS: BP 136/76
[2022-03-31] MEDS ORDERED: POTASSIUM CHLORIDE 20MEQ TABLET SR PO NR (06:00)
[2022-03-31 08:00] VITALS: BP 156/111
[2022-03-31] MEDS: LEVETIRACETAM 500MG TABLET PO SCH ×2 (09:00→21:00)
[2022-03-31] MEDS: CARBAMAZEPINE 200MG TABLET PO SCH ×3 (09:00→16:01)
[2022-03-31] MEDS: FAMOTIDINE 20MG TABLET PO SCH ×2 (09:07→21:18)
[2022-03-31] MEDS: SODIUM CHLORIDE 0.9% 1,000 ML IV SCH (09:07)
[2022-03-31] MEDS: LOSARTAN POTASSIUM 100 MG TABLET PO SCH (09:07)
[2022-03-31 15:20] LABS: CHLORIDE 112 mEq/L (98-107); EOSINOPHILS % 1.2 % (0.0-5.0); HEMATOCRIT. 38.3 % (36.0-48.0); HEMOGLOBIN. 12.1 g/dL (12.0-16.0); LYMPHOCYTES % 34.4 % (20.0-50.0); MEAN CORPUSCULAR HEMOGLOBIN 36.2 pg (28.0-32.0); MEAN CORPUSCULAR VOLUME 114.2 fL (81.0-99.0); MEAN PLATELET VOLUME 11.2 fl (7.4-10.4); MONOCYTES % 9.8 % (2.0-8.0); NEUTROPHILS % 53.6 % (40.0-76.0); PLATELET 253 x1000/uL (130-400); RED BLOOD CELL COUNT 3.35 mill/uL (4.2-5.4); RED CELL DISTRIBUTION WIDTH 16.9 % (11.6-14.6)
[2022-03-31] MEDS ORDERED: POTASSIUM CHLORIDE INJ 40 MEQ in DEXT 5% WATER 250 ML IV ONE (16:00)
[2022-03-31] MEDS: KCL 20MEQ/100ML X 2 FOR TOTAL KCL 40MEQ/200ML IV SCH ×2 (16:08→18:12)
[2022-03-31 20:00] VITALS: BP 157/118
[2022-04-01] VITALS: BP 146/101
[2022-04-01 04:00] VITALS: BP 159/108
[2022-04-01 08:00] VITALS: BP 138/64
[2022-04-01] MEDS: FAMOTIDINE 20MG TABLET PO SCH ×2 (09:07→20:43)
[2022-04-01] MEDS: LOSARTAN POTASSIUM 100 MG TABLET PO SCH (09:07)
[2022-04-01] MEDS: CARBAMAZEPINE 200MG TABLET PO SCH ×3 (09:07→18:14)
[2022-04-01] MEDS: LEVETIRACETAM 500MG TABLET PO SCH (09:08)
[2022-04-01 12:00] VITALS: BP 133/83
[2022-04-01 16:00] VITALS: BP 138/66
[2022-04-01 17:56] LABS: *AMPHETAMINES SCREEN URINE NEGATIVE (NEGATIVE); *BARBITURATES SCREEN URINE NEGATIVE (NEGATIVE); *BENZODIAZEPINES SCREEN URINE PRESUMTIVE POSITIVE (NEGATIVE); *COCAINE SCREEN URINE NEGATIVE (NEGATIVE); CANNABINOID URINE SCREEN PRESUMTIVE POSITIVE (NEGATIVE); METHADONE URINE SCREEN NEGATIVE (NEGATIVE); OPIATES URINE SCREEN NEGATIVE (NEGATIVE); PHENCYCLIDINE URINE SCREEN NEGATIVE (NEGATIVE)
[2022-04-01 20:00] VITALS: BP 185/114
[2022-04-01] MEDS: CLONIDINE 0.1MG TABLET PO PRN (20:43)
[2022-04-01] MEDS: LEVETIRACETAM 250MG TABLET PO SCH (20:44)
[2022-04-01] MEDS: SODIUM CHLORIDE 0.9% 1,000 ML IV SCH (20:44)
[2022-04-02] VITALS: BP 159/112
[2022-04-02] MEDS: HYDRALAZINE 20MG/ML VIAL IV PRN (01:56)
[2022-04-02 04:00] VITALS: BP 146/106
[2022-04-02 08:00] VITALS: BP 135/86
[2022-04-02] MEDS: LOSARTAN POTASSIUM 100 MG TABLET PO SCH (09:00)
[2022-04-02] MEDS: FAMOTIDINE 20MG TABLET PO SCH ×2 (09:00→21:09)
[2022-04-02] MEDS: LEVETIRACETAM 250MG TABLET PO SCH ×2 (09:00→21:09)
[2022-04-02 10:40] VITALS: BP 135/82
[2022-04-02] MEDS: SODIUM CHLORIDE 0.9% 1,000 ML IV SCH ×2 (16:08→21:09)
[2022-04-02 20:00] VITALS: BP 153/106
[2022-04-02] MEDS: CLONIDINE 0.1MG TABLET PO PRN (21:14)
[2022-04-03] VITALS: BP 153/93
[2022-04-03] MEDS: DIPHENHYDRAMINE 50MG/ML VIAL IV PRN (03:36)
[2022-04-03 04:00] VITALS: BP 156/95
[2022-04-03] MEDS: LOSARTAN POTASSIUM 100 MG TABLET PO SCH (08:35)
[2022-04-03] MEDS: LEVETIRACETAM 250MG TABLET PO SCH ×2 (08:35→20:53)
[2022-04-03] MEDS: FAMOTIDINE 20MG TABLET PO SCH ×2 (08:35→20:53)
[2022-04-03 11:38] VITALS: BP 150/77
[2022-04-03 12:00] VITALS: BP 150/77
[2022-04-03 16:00] VITALS: BP 150/83
[2022-04-03] MEDS: SODIUM CHLORIDE 0.9% 1,000 ML IV SCH (18:23)
[2022-04-03 20:00] VITALS: BP 177/111
[2022-04-03] MEDS: QUETIAPINE FUMARATE 25MG TABLET PO SCH (20:53)
[2022-04-03] MEDS: CLONIDINE 0.1MG TABLET PO PRN (21:00)
[2022-04-04] VITALS: BP 174/102
[2022-04-04] MEDS: HYDRALAZINE 20MG/ML VIAL IV PRN (00:55)
[2022-04-04 04:00] VITALS: BP 151/100
[2022-04-04] MEDS: SODIUM CHLORIDE 0.9% 1,000 ML IV SCH ×2 (06:59→20:55)
[2022-04-04] MEDS: LOSARTAN POTASSIUM 100 MG TABLET PO SCH (09:09)
[2022-04-04] MEDS: LEVETIRACETAM 250MG TABLET PO SCH ×2 (09:09→20:55)
[2022-04-04] MEDS: FAMOTIDINE 20MG TABLET PO SCH ×2 (09:09→20:55)
[2022-04-04] MEDS: DIPHENHYDRAMINE 50MG/ML VIAL IV PRN (09:09)
[2022-04-04] MEDS: QUETIAPINE FUMARATE 25MG TABLET PO SCH ×2 (09:09→20:55)
[2022-04-04 12:00] VITALS: BP 130/91
[2022-04-04 16:00] VITALS: BP 178/109
[2022-04-04 20:00] VITALS: BP 110/72
[2022-04-05] VITALS: BP 129/84
[2022-04-05 04:00] VITALS: BP 133/90
[2022-04-05 08:00] VITALS: BP 148/100
[2022-04-05 08:42] LABS: BASOPHILS % 0.6 % (0.0-2.0); EOSINOPHILS % 1.7 % (0.0-5.0); HEMOGLOBIN. 12.3 g/dL (12.0-16.0); LYMPHOCYTES % 38.5 % (20.0-50.0); MEAN CORPUSCULAR HEMOGLOBIN 35.5 pg (28.0-32.0); MEAN PLATELET VOLUME 12.8 fl (7.4-10.4); NEUTROPHILS % 51.2 % (40.0-76.0); PLATELET 231 x1000/uL (130-400); RED BLOOD CELL COUNT 3.46 mill/uL (4.2-5.4); RED CELL DISTRIBUTION WIDTH 17.1 % (11.6-14.6)
[2022-04-05 09:08] LABS: CHLORIDE 110 mEq/L (98-107)
[2022-04-05 09:33] LABS: PHOSPHORUS 3.4 mg/dL (2.5-4.9)
[2022-04-05] MEDS: DOCUSATE SODIUM 100MG CAPSULE PO SCH ×2 (09:52→17:28)
[2022-04-05] MEDS: FAMOTIDINE 20MG TABLET PO SCH ×2 (09:52→20:25)
[2022-04-05] MEDS: QUETIAPINE FUMARATE 25MG TABLET PO SCH ×2 (09:52→20:25)
[2022-04-05] MEDS: LEVETIRACETAM 250MG TABLET PO SCH ×2 (09:52→20:25)
[2022-04-05] MEDS: LOSARTAN POTASSIUM 100 MG TABLET PO SCH (09:52)
[2022-04-05 12:00] VITALS: BP 143/87
[2022-04-05] MEDS ORDERED: MAGNESIUM 2 G PREMIX 50 ML IV NR (12:00)
[2022-04-05] MEDS ORDERED: POTASSIUM CHLORIDE 20MEQ TABLET SR PO NR (12:00)
[2022-04-05] MEDS: SODIUM CHLORIDE 0.9% 1,000 ML IV SCH (12:40)
[2022-04-05 16:00] VITALS: BP 130/81
[2022-04-05 20:00] VITALS: BP 146/99
[2022-04-05] MEDS: MELATONIN 3MG TABLET PO SCH (20:25)
[2022-04-05] MEDS: LAMOTRIGINE 25MG TABLET PO SCH (22:00)
[2022-04-06] VITALS: BP 141/97
[2022-04-06 04:00] VITALS: BP 139/77
[2022-04-06 08:00] VITALS: BP 160/106
[2022-04-06] MEDS: FAMOTIDINE 20MG TABLET PO SCH ×2 (08:56→20:01)
[2022-04-06] MEDS: LEVETIRACETAM 250MG TABLET PO SCH ×2 (08:56→20:01)
[2022-04-06] MEDS: DOCUSATE SODIUM 100MG CAPSULE PO SCH ×2 (08:56→18:19)
[2022-04-06] MEDS: QUETIAPINE FUMARATE 25MG TABLET PO SCH ×2 (08:56→20:01)
[2022-04-06] MEDS: LAMOTRIGINE 25MG TABLET PO SCH (08:56)
[2022-04-06] MEDS: LOSARTAN POTASSIUM 100 MG TABLET PO SCH (08:56)
[2022-04-06] MEDS: MAGNESIUM OXIDE 400MG TABLET PO SCH (08:56)
[2022-04-06 09:45] LABS: CHLORIDE 108 mEq/L (98-107)
[2022-04-06 12:00] VITALS: BP 140/96
[2022-04-06 16:00] VITALS: BP 139/93
[2022-04-06 20:00] VITALS: BP 170/101
[2022-04-06] MEDS: MELATONIN 3MG TABLET PO SCH (20:01)
[2022-04-06] MEDS: CLONIDINE 0.1MG TABLET PO PRN (20:03)
[2022-04-07] VITALS: BP 133/68
[2022-04-07 04:00] VITALS: BP 125/87
[2022-04-07 08:00] VITALS: BP 138/107
[2022-04-07] MEDS: LEVETIRACETAM 250MG TABLET PO SCH ×2 (09:00→20:35)
[2022-04-07] MEDS: LOSARTAN POTASSIUM 100 MG TABLET PO SCH (09:00)
[2022-04-07] MEDS: QUETIAPINE FUMARATE 25MG TABLET PO SCH ×2 (09:00→20:35)
[2022-04-07] MEDS: MAGNESIUM OXIDE 400MG TABLET PO SCH (09:00)
[2022-04-07] MEDS: FAMOTIDINE 20MG TABLET PO SCH ×2 (09:00→20:35)
[2022-04-07] MEDS: LAMOTRIGINE 25MG TABLET PO SCH (09:00)
[2022-04-07] MEDS: DOCUSATE SODIUM 100MG CAPSULE PO SCH ×2 (09:00→16:16)
[2022-04-07 12:00] VITALS: BP 130/98
[2022-04-07 19:17] LABS: CLARITY URINE HAZY (CLEAR); COLOR URINE DARK YELLOW (YELLOW); PROTEIN URINE 1+ (NEGATIVE)
[2022-04-07 19:18] LABS: KETONES URINE 2+ (NEGATIVE); LEUKOCYTE ESTERASE URINE 2+ (NEGATIVE); NITRITE URINE NEGATIVE (NEGATIVE); OCCULT BLOOD URINE NEGATIVE (NEGATIVE); UROBILINOGEN URINE 0.2 E.U./dL (0.2-1.0)
[2022-04-07 20:00] VITALS: BP 134/64
[2022-04-07] MEDS: MELATONIN 3MG TABLET PO SCH (20:35)
[2022-04-08] VITALS: BP 128/74
[2022-04-08 04:00] VITALS: BP 133/76
[2022-04-08] MEDS: FAMOTIDINE 20MG TABLET PO SCH ×2 (09:00→20:32)
[2022-04-08] MEDS: DOCUSATE SODIUM 100MG CAPSULE PO SCH ×2 (09:00→17:00)
[2022-04-08] MEDS: MULTIVITAMINS,THER W-MINERALS TABLET PO SCH (09:00)
[2022-04-08] MEDS: THIAMINE HCL 100MG TABLET PO SCH (09:00)
[2022-04-08] MEDS: QUETIAPINE FUMARATE 25MG TABLET PO SCH ×2 (09:00→20:32)
[2022-04-08] MEDS: LOSARTAN POTASSIUM 100 MG TABLET PO SCH (09:00)
[2022-04-08] MEDS: LAMOTRIGINE 25MG TABLET PO SCH (09:00)
[2022-04-08] MEDS: LEVETIRACETAM 250MG TABLET PO SCH ×2 (09:00→20:32)
[2022-04-08] MEDS: MAGNESIUM OXIDE 400MG TABLET PO SCH (09:00)
[2022-04-08] MEDS ORDERED: CEFTRIAXONE 1,000 MG in DEXTROSE 5% WATER 50 ML IV SCH (12:00)
[2022-04-08 16:00] VITALS: BP 160/87
[2022-04-08] MEDS ORDERED: POTASSIUM CHLORIDE 20MEQ/PACKET PO NR (20:00)
[2022-04-08 20:08] VITALS: BP 152/122
[2022-04-08] MEDS: MELATONIN 3MG TABLET PO SCH (20:32)
[2022-04-08] MEDS: CEFTRIAXONE 1,000 MG in DEXTROSE 5% WATER 50 ML IV SCH (21:48)
[2022-04-09 00:16] VITALS: BP 152/98
[2022-04-09 04:00] VITALS: BP 143/91
[2022-04-09 08:00] VITALS: BP 149/95
[2022-04-09] MEDS: MULTIVITAMINS,THER W-MINERALS TABLET PO SCH (08:58)
[2022-04-09] MEDS: QUETIAPINE FUMARATE 25MG TABLET PO SCH ×2 (09:00→20:47)
[2022-04-09] MEDS: LAMOTRIGINE 25MG TABLET PO SCH (09:00)
[2022-04-09] MEDS: MAGNESIUM OXIDE 400MG TABLET PO SCH (09:04)
[2022-04-09] MEDS: DOCUSATE SODIUM 100MG CAPSULE PO SCH ×2 (09:04→18:10)
[2022-04-09] MEDS: FAMOTIDINE 20MG TABLET PO SCH ×2 (09:04→20:47)
[2022-04-09] MEDS: THIAMINE HCL 100MG TABLET PO SCH (09:05)
[2022-04-09] MEDS: LOSARTAN POTASSIUM 100 MG TABLET PO SCH (09:09)
[2022-04-09] MEDS: LEVETIRACETAM 250MG TABLET PO SCH ×2 (09:50→20:47)
[2022-04-09 12:00] VITALS: BP 145/99
[2022-04-09 16:00] VITALS: BP 150/98
[2022-04-09 20:00] VITALS: BP 154/100
[2022-04-09] MEDS: MELATONIN 3MG TABLET PO SCH (20:47)
[2022-04-10] VITALS: BP 144/94
[2022-04-10] MEDS: CEFTRIAXONE 1,000 MG in DEXTROSE 5% WATER 50 ML IV SCH (00:48)
[2022-04-10 04:00] VITALS: BP 122/71
[2022-04-10 08:00] VITALS: BP 100/50
[2022-04-10] MEDS: QUETIAPINE FUMARATE 25MG TABLET PO SCH ×2 (08:06→09:07)
[2022-04-10] MEDS: LAMOTRIGINE 25MG TABLET PO SCH (08:06)
[2022-04-10] MEDS: LEVETIRACETAM 250MG TABLET PO SCH ×3 (08:06→21:44)
[2022-04-10] MEDS: LOSARTAN POTASSIUM 100 MG TABLET PO SCH (09:00)
[2022-04-10] MEDS: MULTIVITAMINS,THER W-MINERALS TABLET PO SCH (09:07)
[2022-04-10] MEDS: FAMOTIDINE 20MG TABLET PO SCH ×2 (09:07→21:44)
[2022-04-10] MEDS: DOCUSATE SODIUM 100MG CAPSULE PO SCH ×2 (09:07→18:29)
[2022-04-10] MEDS: THIAMINE HCL 100MG TABLET PO SCH (09:07)
[2022-04-10] MEDS: MAGNESIUM OXIDE 400MG TABLET PO SCH (09:07)
[2022-04-10 11:04] LABS: BASOPHILS % 1.4 % (0.0-2.0); EOSINOPHILS % 1.4 % (0.0-5.0); HEMATOCRIT. 34.8 % (36.0-48.0); HEMOGLOBIN. 11.5 g/dL (12.0-16.0); LYMPHOCYTES % 30.2 % (20.0-50.0); MEAN CORPUSCULAR HEMOGLOBIN 35.3 pg (28.0-32.0); MEAN CORPUSCULAR VOLUME 106.6 fL (81.0-99.0); MEAN PLATELET VOLUME 12.5 fl (7.4-10.4); MONOCYTES % 11.7 % (2.0-8.0); NEUTROPHILS % 55.3 % (40.0-76.0); PLATELET 211 x1000/uL (130-400); RED BLOOD CELL COUNT 3.27 mill/uL (4.2-5.4); RED CELL DISTRIBUTION WIDTH 16.7 % (11.6-14.6)
[2022-04-10 12:00] VITALS: BP 110/49
[2022-04-10 14:01] LABS: CHLORIDE 108 mEq/L (98-107)
[2022-04-10 16:00] VITALS: BP 143/63
[2022-04-10] MEDS ORDERED: AMPICILLIN 1000MG in SODIUM CHLORIDE 0.9% 50ML IV SCH (18:00)
[2022-04-10] MEDS ORDERED: NITROFURANTOIN 100MG M/M CAPSULE PO SCH (18:15)
[2022-04-10] MEDS: ACETAMINOPHEN 325MG TABLET PO PRN (18:30)
[2022-04-10 20:00] VITALS: BP 106/59
[2022-04-10] MEDS ORDERED: QUETIAPINE FUMARATE 25MG TABLET PO SCH (21:00)
[2022-04-10] MEDS: DIVALPROEX SODIUM 250MG DR TABLET PO SCH (21:43)
[2022-04-10] MEDS: MELATONIN 3MG TABLET PO SCH (21:44)
[2022-04-11] VITALS: BP 121/69
[2022-04-11 04:00] VITALS: BP 131/67
[2022-04-11 08:00] VITALS: BP 114/94
[2022-04-11] MEDS: LEVETIRACETAM 250MG TABLET PO SCH ×2 (08:29→22:19)
[2022-04-11] MEDS: MULTIVITAMINS,THER W-MINERALS TABLET PO SCH (08:29)
[2022-04-11] MEDS: DOCUSATE SODIUM 100MG CAPSULE PO SCH ×2 (08:29→17:00)
[2022-04-11] MEDS: QUETIAPINE FUMARATE 50MG TABLET PO SCH ×2 (08:29→22:19)
[2022-04-11] MEDS: LOSARTAN POTASSIUM 100 MG TABLET PO SCH (08:29)
[2022-04-11] MEDS: THIAMINE HCL 100MG TABLET PO SCH (08:30)
[2022-04-11] MEDS: LAMOTRIGINE 25MG TABLET PO SCH (08:30)
[2022-04-11] MEDS: MAGNESIUM OXIDE 400MG TABLET PO SCH (08:30)
[2022-04-11] MEDS: FAMOTIDINE 20MG TABLET PO SCH ×2 (08:30→22:20)
[2022-04-11] MEDS: DIVALPROEX SODIUM 250MG DR TABLET PO SCH ×2 (08:30→21:00)
[2022-04-11] MEDS: NITROFURANTOIN 100MG M/M CAPSULE PO SCH ×2 (09:00→22:20)
[2022-04-11 12:00] VITALS: BP 114/81
[2022-04-11 16:00] VITALS: BP 115/82
[2022-04-11 20:00] VITALS: BP 107/73
[2022-04-11] MEDS: MELATONIN 3MG TABLET PO SCH (22:24)
[2022-04-12] VITALS: BP 117/85
[2022-04-12 04:00] VITALS: BP 154/82
[2022-04-12 08:00] VITALS: BP 136/66
[2022-04-12] MEDS: DOCUSATE SODIUM 100MG CAPSULE PO SCH ×2 (09:10→17:00)
[2022-04-12] MEDS: LAMOTRIGINE 25MG TABLET PO SCH (09:10)
[2022-04-12] MEDS: LOSARTAN POTASSIUM 100 MG TABLET PO SCH (09:10)
[2022-04-12] MEDS: MAGNESIUM OXIDE 400MG TABLET PO SCH (09:10)
[2022-04-12] MEDS: DIVALPROEX SODIUM 250MG DR TABLET PO SCH ×2 (09:10→21:46)
[2022-04-12] MEDS: THIAMINE HCL 100MG TABLET PO SCH (09:11)
[2022-04-12] MEDS: NITROFURANTOIN 100MG M/M CAPSULE PO SCH ×2 (09:11→21:46)
[2022-04-12] MEDS: QUETIAPINE FUMARATE 50MG TABLET PO SCH ×2 (09:11→21:47)
[2022-04-12] MEDS: LEVETIRACETAM 250MG TABLET PO SCH ×2 (09:11→21:46)
[2022-04-12] MEDS: MULTIVITAMINS,THER W-MINERALS TABLET PO SCH (09:11)
[2022-04-12] MEDS: FAMOTIDINE 20MG TABLET PO SCH ×2 (09:11→21:47)
[2022-04-12 12:00] VITALS: BP 136/90
[2022-04-12 16:00] VITALS: BP 135/87
[2022-04-12 20:00] VITALS: BP 116/91
[2022-04-12] MEDS: MELATONIN 3MG TABLET PO SCH (21:51)
[2022-04-13] VITALS: BP 139/93
[2022-04-13 08:00] VITALS: BP 146/83
[2022-04-13] MEDS: LOSARTAN POTASSIUM 100 MG TABLET PO SCH (09:23)
[2022-04-13] MEDS: MULTIVITAMINS,THER W-MINERALS TABLET PO SCH (09:23)
[2022-04-13] MEDS: FAMOTIDINE 20MG TABLET PO SCH ×2 (09:23→20:24)
[2022-04-13] MEDS: LEVETIRACETAM 250MG TABLET PO SCH ×2 (09:23→20:24)
[2022-04-13] MEDS: QUETIAPINE FUMARATE 50MG TABLET PO SCH ×2 (09:23→20:24)
[2022-04-13] MEDS: LAMOTRIGINE 25MG TABLET PO SCH (09:24)
[2022-04-13] MEDS: THIAMINE HCL 100MG TABLET PO SCH (09:24)
[2022-04-13] MEDS: DOCUSATE SODIUM 100MG CAPSULE PO SCH ×2 (09:24→18:22)
[2022-04-13] MEDS: DIVALPROEX SODIUM 250MG DR TABLET PO SCH ×2 (09:24→20:24)
[2022-04-13] MEDS: NITROFURANTOIN 100MG M/M CAPSULE PO SCH ×2 (09:43→20:24)
[2022-04-13] MEDS: MAGNESIUM OXIDE 400MG TABLET PO SCH (09:43)
[2022-04-13 12:00] VITALS: BP 127/88
[2022-04-13] MEDS ORDERED: HYDRALAZINE 10 MG in SODIUM CHLORIDE 0.9% 49.5 ML IV PRN (15:45)
[2022-04-13 16:00] VITALS: BP 111/82
[2022-04-13 20:08] VITALS: BP 107/80
[2022-04-13] MEDS: MELATONIN 3MG TABLET PO SCH (20:24)
[2022-04-13] MEDS: BACITRACIN 15GM TUBE TOP SCH (20:28)
[2022-04-14 00:33] VITALS: BP 105/60
[2022-04-14 04:14] VITALS: BP 91/51
[2022-04-14] MEDS: BACITRACIN 15GM TUBE TOP SCH ×2 (05:51→18:31)
[2022-04-14] MEDS: DIVALPROEX SODIUM 250MG DR TABLET PO SCH ×2 (09:00→20:50)
[2022-04-14] MEDS: QUETIAPINE FUMARATE 50MG TABLET PO SCH ×2 (09:37→20:49)
[2022-04-14] MEDS: MAGNESIUM OXIDE 400MG TABLET PO SCH (09:37)
[2022-04-14] MEDS: FAMOTIDINE 20MG TABLET PO SCH ×2 (09:37→20:49)
[2022-04-14] MEDS: LEVETIRACETAM 250MG TABLET PO SCH ×2 (09:37→20:49)
[2022-04-14] MEDS: MULTIVITAMINS,THER W-MINERALS TABLET PO SCH (09:37)
[2022-04-14] MEDS: NITROFURANTOIN 100MG M/M CAPSULE PO SCH ×2 (09:37→20:49)
[2022-04-14] MEDS: THIAMINE HCL 100MG TABLET PO SCH (09:37)
[2022-04-14] MEDS: LAMOTRIGINE 25MG TABLET PO SCH (09:37)
[2022-04-14] MEDS: DOCUSATE SODIUM 100MG CAPSULE PO SCH ×2 (09:40→18:32)
[2022-04-14] MEDS: LOSARTAN POTASSIUM 100 MG TABLET PO SCH (09:40)
[2022-04-14 16:00] VITALS: BP 101/79
[2022-04-14] MEDS: MELATONIN 3MG TABLET PO SCH (21:57)
[2022-04-15 04:00] VITALS: BP 122/75
[2022-04-15] MEDS: BACITRACIN 15GM TUBE TOP SCH ×2 (06:00→18:04)
[2022-04-15 08:00] VITALS: BP 132/92
[2022-04-15] MEDS: THIAMINE HCL 100MG TABLET PO SCH (08:27)
[2022-04-15] MEDS: LOSARTAN POTASSIUM 100 MG TABLET PO SCH (08:27)
[2022-04-15] MEDS: LEVETIRACETAM 250MG TABLET PO SCH ×2 (08:27→21:12)
[2022-04-15] MEDS: DOCUSATE SODIUM 100MG CAPSULE PO SCH ×2 (08:27→18:04)
[2022-04-15] MEDS: DIVALPROEX SODIUM 250MG DR TABLET PO SCH ×3 (08:27→21:12)
[2022-04-15] MEDS: LAMOTRIGINE 25MG TABLET PO SCH (08:28)
[2022-04-15] MEDS: QUETIAPINE FUMARATE 50MG TABLET PO SCH ×2 (08:28→21:12)
[2022-04-15] MEDS: FAMOTIDINE 20MG TABLET PO SCH ×2 (08:28→21:12)
[2022-04-15] MEDS: MULTIVITAMINS,THER W-MINERALS TABLET PO SCH (08:32)
[2022-04-15] MEDS: MAGNESIUM OXIDE 400MG TABLET PO SCH (08:33)
[2022-04-15 12:00] VITALS: BP 120/70
[2022-04-15 16:00] VITALS: BP 128/75
[2022-04-15 20:00] VITALS: BP 154/100
[2022-04-15] MEDS: MELATONIN 3MG TABLET PO SCH (21:12)
[2022-04-16] VITALS: BP 119/47
[2022-04-16 04:00] VITALS: BP 114/78
[2022-04-16] MEDS: DIVALPROEX SODIUM 250MG DR TABLET PO SCH ×3 (07:15→21:48)
[2022-04-16] MEDS: BACITRACIN 15GM TUBE TOP SCH ×2 (07:17→18:00)
[2022-04-16 08:00] VITALS: BP 115/71
[2022-04-16] MEDS: DOCUSATE SODIUM 100MG CAPSULE PO SCH ×2 (08:47→17:00)
[2022-04-16] MEDS: MULTIVITAMINS,THER W-MINERALS TABLET PO SCH (08:47)
[2022-04-16] MEDS: LEVETIRACETAM 250MG TABLET PO SCH ×2 (08:47→21:48)
[2022-04-16] MEDS: LOSARTAN POTASSIUM 100 MG TABLET PO SCH (08:47)
[2022-04-16] MEDS: FAMOTIDINE 20MG TABLET PO SCH ×2 (08:47→21:48)
[2022-04-16] MEDS: THIAMINE HCL 100MG TABLET PO SCH (08:48)
[2022-04-16] MEDS: MAGNESIUM OXIDE 400MG TABLET PO SCH (08:48)
[2022-04-16] MEDS: LAMOTRIGINE 25MG TABLET PO SCH (08:48)
[2022-04-16] MEDS: QUETIAPINE FUMARATE 50MG TABLET PO SCH ×2 (08:48→21:48)
[2022-04-16 12:00] VITALS: BP 119/74
[2022-04-16 16:00] VITALS: BP 128/68
[2022-04-16] MEDS: ACETAMINOPHEN 325MG TABLET PO PRN (19:09)
[2022-04-16 20:00] VITALS: BP 140/63
[2022-04-16 21:19] LABS: BASOPHILS % 1.5 % (0.0-2.0); EOSINOPHILS % 2.2 % (0.0-5.0); HEMATOCRIT. 37.4 % (36.0-48.0); HEMOGLOBIN. 12.1 g/dL (12.0-16.0); LYMPHOCYTES % 49.5 % (20.0-50.0); MEAN CORPUSCULAR HEMOGLOBIN 34.2 pg (28.0-32.0); MEAN CORPUSCULAR VOLUME 105.6 fL (81.0-99.0); MEAN PLATELET VOLUME 13.2 fl (7.4-10.4); MONOCYTES % 10.4 % (2.0-8.0); NEUTROPHILS % 36.4 % (40.0-76.0); PLATELET 205 x1000/uL (130-400); RED BLOOD CELL COUNT 3.54 mill/uL (4.2-5.4); RED CELL DISTRIBUTION WIDTH 16.7 % (11.6-14.6)
[2022-04-16 21:33] LABS: CHLORIDE 104 mEq/L (98-107)
[2022-04-16] MEDS: MELATONIN 3MG TABLET PO SCH (21:48)
[2022-04-17] VITALS: BP 103/61
[2022-04-17 04:00] VITALS: BP 106/71
[2022-04-17] MEDS: DIVALPROEX SODIUM 250MG DR TABLET PO SCH ×3 (06:46→21:35)
[2022-04-17] MEDS: BACITRACIN 15GM TUBE TOP SCH ×2 (06:46→18:00)
[2022-04-17 07:52] VITALS: BP 126/83
[2022-04-17 08:09] LABS: CHLORIDE 102 mEq/L (98-107)
[2022-04-17] MEDS: LEVETIRACETAM 250MG TABLET PO SCH ×2 (08:56→21:35)
[2022-04-17] MEDS: DOCUSATE SODIUM 100MG CAPSULE PO SCH ×2 (08:56→17:00)
[2022-04-17] MEDS: QUETIAPINE FUMARATE 50MG TABLET PO SCH ×2 (08:56→21:35)
[2022-04-17] MEDS: LOSARTAN POTASSIUM 100 MG TABLET PO SCH (08:57)
[2022-04-17] MEDS: FAMOTIDINE 20MG TABLET PO SCH ×2 (08:57→21:35)
[2022-04-17] MEDS: THIAMINE HCL 100MG TABLET PO SCH (08:57)
[2022-04-17] MEDS: LAMOTRIGINE 25MG TABLET PO SCH (09:00)
[2022-04-17] MEDS: MULTIVITAMINS,THER W-MINERALS TABLET PO SCH (09:00)
[2022-04-17] MEDS: MAGNESIUM OXIDE 400MG TABLET PO SCH (09:00)
[2022-04-17 11:48] VITALS: BP 97/67
[2022-04-17 16:06] VITALS: BP 118/78
[2022-04-17 20:00] VITALS: BP 106/72
[2022-04-17] MEDS ORDERED: POTASSIUM CHLORIDE 20MEQ/PACKET PO NR (20:00)
[2022-04-17] MEDS: MELATONIN 3MG TABLET PO SCH (21:44)
[2022-04-18] VITALS: BP 121/74
[2022-04-18 04:00] VITALS: BP 120/76
[2022-04-18] MEDS: BACITRACIN 15GM TUBE TOP SCH ×2 (06:03→17:31)
[2022-04-18] MEDS: DIVALPROEX SODIUM 250MG DR TABLET PO SCH ×3 (06:03→22:08)
[2022-04-18 08:00] VITALS: BP 111/66
[2022-04-18] MEDS: MULTIVITAMINS,THER W-MINERALS TABLET PO SCH (09:55)
[2022-04-18] MEDS: QUETIAPINE FUMARATE 50MG TABLET PO SCH ×2 (09:56→22:08)
[2022-04-18] MEDS: LOSARTAN POTASSIUM 100 MG TABLET PO SCH (09:56)
[2022-04-18] MEDS: LEVETIRACETAM 250MG TABLET PO SCH ×2 (09:56→22:08)
[2022-04-18] MEDS: DOCUSATE SODIUM 100MG CAPSULE PO SCH ×2 (09:56→17:31)
[2022-04-18] MEDS: LAMOTRIGINE 25MG TABLET PO SCH (09:56)
[2022-04-18] MEDS: MAGNESIUM OXIDE 400MG TABLET PO SCH (09:56)
[2022-04-18] MEDS: FAMOTIDINE 20MG TABLET PO SCH ×2 (09:56→22:08)
[2022-04-18] MEDS: THIAMINE HCL 100MG TABLET PO SCH (09:59)
[2022-04-18 12:00] VITALS: BP 122/85
[2022-04-18 14:16] LABS: VITAMIN B12 SERUM 880 pg/mL (211-911)
[2022-04-18 16:00] VITALS: BP 102/70
[2022-04-18 20:00] VITALS: BP 129/79
[2022-04-18] MEDS: MELATONIN 3MG TABLET PO SCH (22:09)
[2022-04-19] VITALS: BP 129/60
[2022-04-19 04:00] VITALS: BP 123/69
[2022-04-19] MEDS: BACITRACIN 15GM TUBE TOP SCH ×2 (06:00→18:56)
[2022-04-19] MEDS: DIVALPROEX SODIUM 250MG DR TABLET PO SCH ×2 (06:00→14:00)
[2022-04-19 08:00] VITALS: BP 131/85
[2022-04-19] MEDS: DOCUSATE SODIUM 100MG CAPSULE PO SCH ×2 (09:12→17:00)
[2022-04-19] MEDS: MULTIVITAMINS,THER W-MINERALS TABLET PO SCH (09:12)
[2022-04-19] MEDS: LOSARTAN POTASSIUM 100 MG TABLET PO SCH (09:12)
[2022-04-19] MEDS: MAGNESIUM OXIDE 400MG TABLET PO SCH (09:12)
[2022-04-19] MEDS: FAMOTIDINE 20MG TABLET PO SCH ×2 (09:12→21:00)
[2022-04-19] MEDS: LEVETIRACETAM 250MG TABLET PO SCH ×2 (09:12→21:00)
[2022-04-19] MEDS: LAMOTRIGINE 25MG TABLET PO SCH (09:12)
[2022-04-19] MEDS: QUETIAPINE FUMARATE 50MG TABLET PO SCH ×2 (09:12→21:00)
[2022-04-19] MEDS: THIAMINE HCL 100MG TABLET PO SCH (09:12)
[2022-04-19 12:00] VITALS: BP 91/65
[2022-04-19 16:00] VITALS: BP 115/79
[2022-04-19 20:00] VITALS: BP 118/71
[2022-04-19] MEDS: MELATONIN 3MG TABLET PO SCH (21:00)
[2022-04-19] MEDS: VALPROATE SODIUM 250MG/5ML UDC PO SCH (22:00)
[2022-04-20] VITALS: BP 111/75
[2022-04-20 04:00] VITALS: BP 91/53
[2022-04-20] MEDS: BACITRACIN 15GM TUBE TOP SCH ×2 (05:20→18:00)
[2022-04-20] MEDS: VALPROATE SODIUM 250MG/5ML UDC PO SCH ×5 (05:20→21:00)
[2022-04-20 08:00] VITALS: BP 94/60
[2022-04-20] MEDS: MAGNESIUM OXIDE 400MG TABLET PO SCH (09:00)
[2022-04-20] MEDS: THIAMINE HCL 100MG TABLET PO SCH (09:00)
[2022-04-20] MEDS: FAMOTIDINE 20MG TABLET PO SCH ×2 (09:00→21:00)
[2022-04-20] MEDS: LAMOTRIGINE 25MG TABLET PO SCH (09:17)
[2022-04-20] MEDS: DOCUSATE SODIUM 100MG CAPSULE PO SCH ×2 (09:18→17:00)
[2022-04-20] MEDS: QUETIAPINE FUMARATE 50MG TABLET PO SCH ×2 (09:18→21:00)
[2022-04-20] MEDS: LEVETIRACETAM 250MG TABLET PO SCH (09:18)
[2022-04-20] MEDS: MULTIVITAMINS,THER W-MINERALS TABLET PO SCH (09:18)
[2022-04-20] MEDS: MELATONIN 3MG TABLET PO SCH (21:00)
[2022-04-21] MEDS: BACITRACIN 15GM TUBE TOP SCH ×2 (06:00→18:01)
[2022-04-21] MEDS: THIAMINE HCL 100MG TABLET PO SCH (08:36)
[2022-04-21] MEDS: MULTIVITAMINS,THER W-MINERALS TABLET PO SCH (08:36)
[2022-04-21] MEDS: VALPROATE SODIUM 250MG/5ML UDC PO SCH ×2 (08:36→18:00)
[2022-04-21] MEDS: QUETIAPINE FUMARATE 50MG TABLET PO SCH ×2 (08:36→21:26)
[2022-04-21] MEDS: MAGNESIUM OXIDE 400MG TABLET PO SCH (08:36)
[2022-04-21] MEDS: FAMOTIDINE 20MG TABLET PO SCH ×2 (08:36→21:26)
[2022-04-21] MEDS: DOCUSATE SODIUM 100MG CAPSULE PO SCH ×2 (08:36→18:00)
[2022-04-21] MEDS: OLANZAPINE 5MG TABLET PO SCH ×2 (13:36→18:00)
[2022-04-21 16:00] VITALS: BP 107/71
[2022-04-21 20:00] VITALS: BP 96/68
[2022-04-21] MEDS ORDERED: NALOXONE HCL 0.4MG/ML VIAL IV PRN (22:30)
[2022-04-21] MEDS: HYDROCODONE/ACETAMINOPHEN 5/325MG TABLET PO PRN (22:30)
[2022-04-21] MEDS: MELATONIN 3MG TABLET PO SCH (22:30)
[2022-04-22] VITALS: BP 103/68
[2022-04-22 04:00] VITALS: BP 109/69
[2022-04-22] MEDS: BACITRACIN 15GM TUBE TOP SCH ×2 (05:37→18:04)
[2022-04-22 08:00] VITALS: BP 121/82
[2022-04-22] MEDS: DOCUSATE SODIUM 100MG CAPSULE PO SCH ×2 (09:06→18:04)
[2022-04-22] MEDS: MULTIVITAMINS,THER W-MINERALS TABLET PO SCH (09:06)
[2022-04-22] MEDS: VALPROATE SODIUM 250MG/5ML UDC PO SCH ×2 (09:06→18:04)
[2022-04-22] MEDS: OLANZAPINE 5MG TABLET PO SCH ×2 (09:06→18:04)
[2022-04-22] MEDS: FAMOTIDINE 20MG TABLET PO SCH (09:06)
[2022-04-22] MEDS: MAGNESIUM OXIDE 400MG TABLET PO SCH (09:12)
[2022-04-22] MEDS: THIAMINE HCL 100MG TABLET PO SCH (09:12)
[2022-04-22 12:00] VITALS: BP 152/55
[2022-04-22 16:00] VITALS: BP 106/79
[2022-04-22 20:00] VITALS: BP 122/85
[2022-04-22] MEDS: MELATONIN 3MG TABLET PO SCH (20:11)
[2022-04-22] MEDS: HALOPERIDOL LACTATE 5MG/ML VIAL IM PRN (20:11)
[2022-04-22] MEDS: QUETIAPINE FUMARATE 50MG TABLET PO SCH (20:11)
[2022-04-23] VITALS: BP 122/82
[2022-04-23 04:00] VITALS: BP 105/77
[2022-04-23] MEDS: BACITRACIN 15GM TUBE TOP SCH ×2 (05:19→17:26)
[2022-04-23] MEDS: HYDROCODONE/ACETAMINOPHEN 5/325MG TABLET PO PRN ×3 (05:20→20:23)
[2022-04-23 08:00] VITALS: BP 105/81
[2022-04-23] MEDS: MULTIVITAMINS,THER W-MINERALS TABLET PO SCH (08:14)
[2022-04-23] MEDS: DOCUSATE SODIUM 100MG CAPSULE PO SCH ×2 (08:14→17:00)
[2022-04-23] MEDS: THIAMINE HCL 100MG TABLET PO SCH (08:15)
[2022-04-23] MEDS: VALPROATE SODIUM 250MG/5ML UDC PO SCH ×2 (08:15→17:26)
[2022-04-23] MEDS: OLANZAPINE 5MG TABLET PO SCH ×2 (08:15→17:26)
[2022-04-23] MEDS: MAGNESIUM OXIDE 400MG TABLET PO SCH (08:15)
[2022-04-23] MEDS: HALOPERIDOL LACTATE 5MG/ML VIAL IM PRN ×2 (09:13→21:29)
[2022-04-23 12:00] VITALS: BP 98/65
[2022-04-23 16:00] VITALS: BP 113/77
[2022-04-23] MEDS: QUETIAPINE FUMARATE 50MG TABLET PO SCH (20:22)
[2022-04-23] MEDS: MELATONIN 3MG TABLET PO SCH (20:22)
[2022-04-24 00:50] VITALS: BP 110/86
[2022-04-24] MEDS: BACITRACIN 15GM TUBE TOP SCH ×2 (06:00→17:18)
[2022-04-24] MEDS: HYDROCODONE/ACETAMINOPHEN 5/325MG TABLET PO PRN ×2 (06:31→12:27)
[2022-04-24 08:00] VITALS: BP 105/81
[2022-04-24] MEDS: DOCUSATE SODIUM 100MG CAPSULE PO SCH ×2 (09:00→17:00)
[2022-04-24] MEDS: MULTIVITAMINS,THER W-MINERALS TABLET PO SCH (11:05)
[2022-04-24] MEDS: MAGNESIUM OXIDE 400MG TABLET PO SCH (11:05)
[2022-04-24] MEDS: THIAMINE HCL 100MG TABLET PO SCH (11:05)
[2022-04-24] MEDS: VALPROATE SODIUM 250MG/5ML UDC PO SCH ×2 (11:06→17:36)
[2022-04-24] MEDS: OLANZAPINE 5MG TABLET PO SCH ×2 (11:06→17:35)
[2022-04-24 12:00] VITALS: BP 146/80
[2022-04-24 16:00] VITALS: BP 116/47
[2022-04-24 20:00] VITALS: BP 130/77
[2022-04-24] MEDS: QUETIAPINE FUMARATE 50MG TABLET PO SCH (20:40)
[2022-04-24] MEDS: MELATONIN 3MG TABLET PO SCH (20:40)
[2022-04-24] MEDS: HALOPERIDOL LACTATE 5MG/ML VIAL IM PRN (23:55)
[2022-04-25] VITALS: BP 146/86
[2022-04-25 04:00] VITALS: BP 114/76
[2022-04-25] MEDS: BACITRACIN 15GM TUBE TOP SCH ×2 (06:00→18:45)
[2022-04-25] MEDS: HALOPERIDOL LACTATE 5MG/ML VIAL IM PRN ×2 (06:33→20:31)
[2022-04-25 08:00] VITALS: BP 109/58
[2022-04-25] MEDS: OLANZAPINE 5MG TABLET PO SCH ×2 (09:07→17:02)
[2022-04-25] MEDS: VALPROATE SODIUM 250MG/5ML UDC PO SCH ×2 (09:07→17:02)
[2022-04-25] MEDS: THIAMINE HCL 100MG TABLET PO SCH (09:08)
[2022-04-25] MEDS: MAGNESIUM OXIDE 400MG TABLET PO SCH (09:08)
[2022-04-25] MEDS: DOCUSATE SODIUM 100MG CAPSULE PO SCH ×2 (09:08→17:02)
[2022-04-25] MEDS: MULTIVITAMINS,THER W-MINERALS TABLET PO SCH (09:08)
[2022-04-25 12:00] VITALS: BP 99/63
[2022-04-25 14:08] LABS: HIV SCREEN 4G Non Reactive (Non Reactive)
[2022-04-25 16:00] VITALS: BP 126/80
[2022-04-25 20:00] VITALS: BP 127/76
[2022-04-25] MEDS: MELATONIN 3MG TABLET PO SCH (20:31)
[2022-04-25] MEDS: QUETIAPINE FUMARATE 50MG TABLET PO SCH (20:31)
[2022-04-26] VITALS: BP 110/80
[2022-04-26 04:00] VITALS: BP 141/76
[2022-04-26] MEDS: HALOPERIDOL LACTATE 5MG/ML VIAL IM PRN ×2 (04:39→20:52)
[2022-04-26] MEDS: BACITRACIN 15GM TUBE TOP SCH ×2 (06:00→17:50)
[2022-04-26 08:00] VITALS: BP 121/80
[2022-04-26] MEDS: MAGNESIUM OXIDE 400MG TABLET PO SCH (08:17)
[2022-04-26] MEDS: THIAMINE HCL 100MG TABLET PO SCH (08:17)
[2022-04-26] MEDS: OLANZAPINE 5MG TABLET PO SCH ×2 (08:17→17:39)
[2022-04-26] MEDS: MULTIVITAMINS,THER W-MINERALS TABLET PO SCH (08:17)
[2022-04-26] MEDS: VALPROATE SODIUM 250MG/5ML UDC PO SCH ×2 (08:17→17:39)
[2022-04-26] MEDS: DOCUSATE SODIUM 100MG CAPSULE PO SCH ×2 (08:17→17:39)
[2022-04-26 12:00] VITALS: BP 121/71
[2022-04-26 16:00] VITALS: BP 126/84
[2022-04-26 20:00] VITALS: BP 112/81
[2022-04-26] MEDS: QUETIAPINE FUMARATE 50MG TABLET PO SCH (20:51)
[2022-04-26] MEDS: MELATONIN 3MG TABLET PO SCH (20:51)
[2022-04-27 04:00] VITALS: BP 139/99
[2022-04-27] MEDS: BACITRACIN 15GM TUBE TOP SCH ×2 (06:28→18:00)
[2022-04-27 08:00] VITALS: BP_SYST 115; BP_SYST 132; BP_DIAS 83; BP_DIAS 96
[2022-04-27] MEDS: VALPROATE SODIUM 250MG/5ML UDC PO SCH ×2 (10:41→19:34)
[2022-04-27] MEDS: MULTIVITAMINS,THER W-MINERALS TABLET PO SCH (10:42)
[2022-04-27] MEDS: THIAMINE HCL 100MG TABLET PO SCH (10:42)
[2022-04-27] MEDS: MAGNESIUM OXIDE 400MG TABLET PO SCH (10:42)
[2022-04-27] MEDS: DOCUSATE SODIUM 100MG CAPSULE PO SCH ×2 (10:42→19:35)
[2022-04-27] MEDS: OLANZAPINE 5MG TABLET PO SCH ×2 (10:42→19:39)
[2022-04-27 12:00] VITALS: BP 128/84
[2022-04-27 16:00] VITALS: BP 115/83
[2022-04-27 19:51] VITALS: BP 119/82
[2022-04-27] MEDS: MELATONIN 3MG TABLET PO SCH (21:48)
[2022-04-27] MEDS: QUETIAPINE FUMARATE 50MG TABLET PO SCH (21:48)
[2022-04-28] VITALS: BP 120/82
[2022-04-28 04:00] VITALS: BP 122/84
[2022-04-28] MEDS: BACITRACIN 15GM TUBE TOP SCH ×2 (06:22→17:13)
[2022-04-28 08:00] VITALS: BP 113/69
[2022-04-28] MEDS: MULTIVITAMINS,THER W-MINERALS TABLET PO SCH (10:39)
[2022-04-28] MEDS: DOCUSATE SODIUM 100MG CAPSULE PO SCH ×2 (10:39→17:12)
[2022-04-28] MEDS: THIAMINE HCL 100MG TABLET PO SCH (10:39)
[2022-04-28] MEDS: OLANZAPINE 5MG TABLET PO SCH ×2 (10:39→17:12)
[2022-04-28] MEDS: VALPROATE SODIUM 250MG/5ML UDC PO SCH ×2 (10:39→17:12)
[2022-04-28] MEDS: MAGNESIUM OXIDE 400MG TABLET PO SCH (11:09)
[2022-04-28 12:00] VITALS: BP 116/69
[2022-04-28 16:00] VITALS: BP 118/71
[2022-04-28 20:00] VITALS: BP 100/71
[2022-04-28] MEDS: MELATONIN 3MG TABLET PO SCH (20:29)
[2022-04-28] MEDS: QUETIAPINE FUMARATE 50MG TABLET PO SCH (20:29)
[2022-04-28] MEDS: HALOPERIDOL LACTATE 5MG/ML VIAL IM PRN ×2 (20:39)
[2022-04-29] VITALS: BP 105/71
[2022-04-29 04:00] VITALS: BP 110/71
[2022-04-29 08:00] VITALS: BP 137/73
[2022-04-29] MEDS: DOCUSATE SODIUM 100MG CAPSULE PO SCH ×2 (09:38→17:35)
[2022-04-29] MEDS: BACITRACIN 15GM TUBE TOP SCH ×2 (09:39→17:35)
[2022-04-29] MEDS: MAGNESIUM OXIDE 400MG TABLET PO SCH (09:39)
[2022-04-29] MEDS: VALPROATE SODIUM 250MG/5ML UDC PO SCH ×3 (09:39→17:35)
[2022-04-29] MEDS: MULTIVITAMINS,THER W-MINERALS TABLET PO SCH (09:39)
[2022-04-29] MEDS: THIAMINE HCL 100MG TABLET PO SCH (09:43)
[2022-04-29] MEDS: OLANZAPINE 5MG TABLET PO SCH (09:43)
[2022-04-29 12:00] VITALS: BP 130/85
[2022-04-29 16:00] VITALS: BP 125/58
[2022-04-29] MEDS ORDERED: ACETAMINOPHEN 650MG/20.3ML UDC PO NR (17:30)
[2022-04-29 20:00] VITALS: BP 104/70
[2022-04-29] MEDS: MELATONIN 3MG TABLET PO SCH (21:27)
[2022-04-29] MEDS: OLANZAPINE 10MG TABLET PO SCH (21:28)
[2022-04-29] MEDS: HALOPERIDOL LACTATE 5MG/ML VIAL IM PRN (21:28)
[2022-04-30] VITALS (7 sets, daily range): BP systolic 116–130; BP diastolic 70–87
[2022-04-30] MEDS: BACITRACIN 15GM TUBE TOP SCH ×2 (06:33→17:01)
[2022-04-30] MEDS: DOCUSATE SODIUM 100MG CAPSULE PO SCH ×2 (08:44→16:59)
[2022-04-30] MEDS: MULTIVITAMINS,THER W-MINERALS TABLET PO SCH (08:44)
[2022-04-30] MEDS: MAGNESIUM OXIDE 400MG TABLET PO SCH (08:44)
[2022-04-30] MEDS: VALPROATE SODIUM 250MG/5ML UDC PO SCH ×3 (08:44→16:59)
[2022-04-30] MEDS: THIAMINE HCL 100MG TABLET PO SCH (08:44)
[2022-04-30] MEDS: OLANZAPINE 5MG TABLET PO SCH (09:01)
[2022-04-30] MEDS: OLANZAPINE 10MG TABLET PO SCH (21:26)
[2022-04-30] MEDS: MELATONIN 3MG TABLET PO SCH (21:26)
[2022-04-30] MEDS: HALOPERIDOL LACTATE 5MG/ML VIAL IM PRN (21:39)
[2022-05-01 03:56] VITALS: BP 112/73
[2022-05-01] MEDS: BACITRACIN 15GM TUBE TOP SCH ×2 (05:52→18:00)
[2022-05-01 08:00] VITALS: BP 113/73
[2022-05-01] MEDS: VALPROATE SODIUM 250MG/5ML UDC PO SCH ×4 (09:00→21:00)
[2022-05-01 12:00] VITALS: BP 119/82
[2022-05-01] MEDS: OLANZAPINE 5MG TABLET PO SCH (13:33)
[2022-05-01] MEDS: MULTIVITAMINS,THER W-MINERALS TABLET PO SCH (13:33)
[2022-05-01] MEDS: THIAMINE HCL 100MG TABLET PO SCH (13:33)
[2022-05-01] MEDS: MAGNESIUM OXIDE 400MG TABLET PO SCH (13:33)
[2022-05-01] MEDS: DOCUSATE SODIUM 100MG CAPSULE PO SCH (13:33)
[2022-05-01 16:29] VITALS: BP 124/79
[2022-05-01] MEDS ORDERED: DOCUSATE SODIUM 100MG CAPSULE NG SCH (17:00)
[2022-05-01] MEDS: SODIUM CHLORIDE 0.9% 1,000 ML IV SCH (18:15)
[2022-05-01 20:00] VITALS: BP 130/86
[2022-05-01] MEDS: OLANZAPINE 10MG TABLET PO SCH (21:00)
[2022-05-01] MEDS: MELATONIN 3MG TABLET PO SCH (21:00)
[2022-05-02] VITALS: BP 110/83
[2022-05-02] MEDS: HALOPERIDOL LACTATE 5MG/ML VIAL IM PRN (02:48)
[2022-05-02] MEDS: BACITRACIN 15GM TUBE TOP SCH ×2 (06:05→18:00)
[2022-05-02 08:00] VITALS: BP 107/67
[2022-05-02] MEDS: MULTIVITAMINS,THER W-MINERALS TABLET PO SCH (09:12)
[2022-05-02] MEDS: VALPROATE SODIUM 250MG/5ML UDC PO SCH ×3 (09:12→16:16)
[2022-05-02] MEDS: DOCUSATE SODIUM SUGAR FREE 100MG/10ML UDC NG SCH (09:12)
[2022-05-02] MEDS: THIAMINE HCL 100MG TABLET PO SCH (09:12)
[2022-05-02] MEDS: SODIUM CHLORIDE 0.9% 1,000 ML IV SCH ×2 (09:13→22:42)
[2022-05-02] MEDS: MAGNESIUM OXIDE 400MG TABLET PO SCH (09:13)
[2022-05-02] MEDS: OLANZAPINE 5MG TABLET PO SCH (09:13)
[2022-05-02 11:46] VITALS: BP 102/72
[2022-05-02 16:00] VITALS: BP 104/75
[2022-05-02] MEDS ORDERED: NALOXONE HCL 0.4MG/ML VIAL IV PRN (16:00)
[2022-05-02] MEDS: HYDROCODONE/ACETAMINOPHEN 5/325MG TABLET PO PRN (16:17)
[2022-05-02] MEDS: MELATONIN 3MG TABLET PO SCH (21:00)
[2022-05-02] MEDS: OLANZAPINE 10MG TABLET PO SCH (22:18)
[2022-05-03 02:00] VITALS: BP 114/79
[2022-05-03] MEDS: HYDROCODONE/ACETAMINOPHEN 5/325MG TABLET PO PRN ×2 (02:39→12:40)
[2022-05-03 04:00] VITALS: BP 120/81
[2022-05-03] MEDS: BACITRACIN 15GM TUBE TOP SCH ×2 (06:35→18:22)
[2022-05-03 07:54] VITALS: BP 107/74
[2022-05-03] MEDS: DOCUSATE SODIUM SUGAR FREE 100MG/10ML UDC NG SCH (08:51)
[2022-05-03] MEDS: MULTIVITAMINS,THER W-MINERALS TABLET PO SCH (08:51)
[2022-05-03] MEDS: THIAMINE HCL 100MG TABLET PO SCH (08:51)
[2022-05-03] MEDS: VALPROATE SODIUM 250MG/5ML UDC PO SCH ×3 (08:51→18:22)
[2022-05-03] MEDS: OLANZAPINE 5MG TABLET PO SCH (08:54)
[2022-05-03] MEDS: MAGNESIUM OXIDE 400MG TABLET PO SCH (09:02)
[2022-05-03 12:00] VITALS: BP 95/62
[2022-05-03] MEDS: SODIUM CHLORIDE 0.9% 1,000 ML IV SCH (13:05)
[2022-05-03] MEDS: PANTOPRAZOLE 40MG DR TABLET PO SCH (13:30)
[2022-05-03 20:16] VITALS: BP 99/74
[2022-05-03] MEDS: MELATONIN 3MG TABLET PO SCH (22:23)
[2022-05-03] MEDS: OLANZAPINE 10MG TABLET PO SCH (22:23)
[2022-05-04] MEDS: SODIUM CHLORIDE 0.9% 1,000 ML IV SCH ×2 (03:27→17:55)
[2022-05-04] MEDS: BACITRACIN 15GM TUBE TOP SCH ×2 (06:12→18:55)
[2022-05-04] MEDS: PANTOPRAZOLE 40MG DR TABLET PO SCH (06:13)
[2022-05-04 08:00] VITALS: BP 110/72
[2022-05-04] MEDS: MAGNESIUM OXIDE 400MG TABLET PO SCH (09:00)
[2022-05-04] MEDS: VALPROATE SODIUM 250MG/5ML UDC PO SCH ×3 (10:12→16:31)
[2022-05-04] MEDS: DOCUSATE SODIUM SUGAR FREE 100MG/10ML UDC NG SCH (10:12)
[2022-05-04] MEDS: THIAMINE HCL 100MG TABLET PO SCH (10:12)
[2022-05-04] MEDS: MULTIVITAMINS,THER W-MINERALS TABLET PO SCH (10:13)
[2022-05-04] MEDS: OLANZAPINE 5MG TABLET PO SCH (10:16)
[2022-05-04 11:57] VITALS: BP 99/70
[2022-05-04 16:00] VITALS: BP 123/85
[2022-05-04] MEDS: HYDROCODONE/ACETAMINOPHEN 5/325MG TABLET PO PRN (16:33)
[2022-05-04 20:00] VITALS: BP 129/84
[2022-05-04] MEDS: HALOPERIDOL LACTATE 5MG/ML VIAL IM PRN (20:46)
[2022-05-04] MEDS: OLANZAPINE 10MG TABLET PO SCH (20:46)
[2022-05-05] MEDS: HYDROCODONE/ACETAMINOPHEN 5/325MG TABLET PO PRN ×3 (06:28→17:21)
[2022-05-05] MEDS: PANTOPRAZOLE 40MG DR TABLET PO SCH (06:28)
[2022-05-05] MEDS: BACITRACIN 15GM TUBE TOP SCH ×2 (06:33→17:20)
[2022-05-05] MEDS: DOCUSATE SODIUM SUGAR FREE 100MG/10ML UDC NG SCH (09:05)
[2022-05-05] MEDS: VALPROATE SODIUM 250MG/5ML UDC PO SCH ×3 (09:11→17:20)
[2022-05-05] MEDS: THIAMINE HCL 100MG TABLET PO SCH (09:12)
[2022-05-05] MEDS: OLANZAPINE 5MG TABLET PO SCH (09:12)
[2022-05-05] MEDS: MULTIVITAMINS,THER W-MINERALS TABLET PO SCH (09:12)
[2022-05-05] MEDS: SODIUM CHLORIDE 0.9% 1,000 ML IV SCH ×2 (12:43→21:54)
[2022-05-05 16:00] VITALS: BP 102/69
[2022-05-05] MEDS: OLANZAPINE 10MG TABLET PO SCH (21:06)
[2022-05-05] MEDS: HALOPERIDOL LACTATE 5MG/ML VIAL IM PRN (21:50)
[2022-05-06] MEDS: BACITRACIN 15GM TUBE TOP SCH ×2 (05:16→18:00)
[2022-05-06] MEDS: PANTOPRAZOLE 40MG DR TABLET PO SCH (06:28)
[2022-05-06 08:00] VITALS: BP 105/68
[2022-05-06] MEDS: MULTIVITAMINS,THER W-MINERALS TABLET PO SCH (09:05)
[2022-05-06] MEDS: THIAMINE HCL 100MG TABLET PO SCH (09:05)
[2022-05-06] MEDS: DOCUSATE SODIUM SUGAR FREE 100MG/10ML UDC NG SCH (09:05)
[2022-05-06] MEDS: OLANZAPINE 5MG TABLET PO SCH (09:13)
[2022-05-06] MEDS: VALPROATE SODIUM 250MG/5ML UDC PO SCH ×3 (09:16→17:09)
[2022-05-06 12:16] VITALS: BP 109/62
[2022-05-06] MEDS: SODIUM CHLORIDE 0.9% 1,000 ML IV SCH (12:39)
[2022-05-06] MEDS: HYDROCODONE/ACETAMINOPHEN 5/325MG TABLET PO PRN ×2 (14:41→19:59)
[2022-05-06 16:21] VITALS: BP 102/80
[2022-05-06] MEDS: OLANZAPINE 10MG TABLET PO SCH (19:59)
[2022-05-06 20:00] VITALS: BP 129/85
[2022-05-06] MEDS: HALOPERIDOL LACTATE 5MG/ML VIAL IM PRN (21:43)
[2022-05-07] VITALS: BP 121/81
[2022-05-07] MEDS: HYDROCODONE/ACETAMINOPHEN 5/325MG TABLET PO PRN ×3 (01:03→11:02)
[2022-05-07] MEDS: SODIUM CHLORIDE 0.9% 1,000 ML IV SCH ×2 (02:57→17:13)
[2022-05-07 04:00] VITALS: BP 93/61
[2022-05-07 08:00] VITALS: BP 101/60
[2022-05-07] MEDS: PANTOPRAZOLE 40MG DR TABLET PO SCH (11:02)
[2022-05-07] MEDS: DOCUSATE SODIUM SUGAR FREE 100MG/10ML UDC NG SCH (11:03)
[2022-05-07] MEDS: OLANZAPINE 5MG TABLET PO SCH (11:03)
[2022-05-07] MEDS: VALPROATE SODIUM 250MG/5ML UDC PO SCH ×3 (11:03→17:13)
[2022-05-07 12:00] VITALS: BP 109/62
[2022-05-07 16:09] VITALS: BP 112/68
[2022-05-07] MEDS: BACITRACIN 15GM TUBE TOP SCH (18:00)
[2022-05-07 20:00] VITALS: BP 115/68
[2022-05-07] MEDS: OLANZAPINE 10MG TABLET PO SCH (21:00)
[2022-05-08] VITALS: BP 116/78
[2022-05-08] MEDS: BACITRACIN 15GM TUBE TOP SCH ×2 (06:40→17:58)
[2022-05-08] MEDS: SODIUM CHLORIDE 0.9% 1,000 ML IV SCH ×2 (07:33→21:04)
[2022-05-08 08:00] VITALS: BP 106/68
[2022-05-08 12:00] VITALS: BP 111/69
[2022-05-08] MEDS: DOCUSATE SODIUM SUGAR FREE 100MG/10ML UDC NG SCH (12:01)
[2022-05-08] MEDS: OLANZAPINE 5MG TABLET PO SCH (12:02)
[2022-05-08] MEDS: FAMOTIDINE 20MG TABLET PO SCH ×2 (12:02→21:04)
[2022-05-08] MEDS: VALPROATE SODIUM 250MG/5ML UDC PO SCH ×3 (12:02→17:57)
[2022-05-08 16:00] VITALS: BP 104/72
[2022-05-08 20:00] VITALS: BP 124/78
[2022-05-08] MEDS: OLANZAPINE 10MG TABLET PO SCH (21:04)
[2022-05-08] MEDS: HALOPERIDOL LACTATE 5MG/ML VIAL IM PRN (21:10)
[2022-05-09] VITALS: BP 142/94
[2022-05-09 04:00] VITALS: BP 145/98
[2022-05-09] MEDS: BACITRACIN 15GM TUBE TOP SCH ×2 (05:14→17:18)
[2022-05-09 08:00] VITALS: BP 138/86
[2022-05-09] MEDS: DOCUSATE SODIUM SUGAR FREE 100MG/10ML UDC NG SCH (09:44)
[2022-05-09] MEDS: VALPROATE SODIUM 250MG/5ML UDC PO SCH ×3 (09:45→17:18)
[2022-05-09] MEDS: FAMOTIDINE 20MG TABLET PO SCH ×2 (09:45→20:11)
[2022-05-09] MEDS: OLANZAPINE 5MG TABLET PO SCH (09:45)
[2022-05-09 12:00] VITALS: BP 121/82
[2022-05-09] MEDS: SODIUM CHLORIDE 0.9% 1,000 ML IV SCH (12:09)
[2022-05-09 16:00] VITALS: BP 116/77
[2022-05-09] MEDS ORDERED: ACETAMINOPHEN 650MG/20.3ML UDC PO PRN (17:00)
[2022-05-09] MEDS ORDERED: NALOXONE HCL 0.4MG/ML VIAL IV PRN (17:15)
[2022-05-09] MEDS: HYDROCODONE/ACETAMINOPHEN 5/325MG TABLET PO PRN (17:20)
[2022-05-09 20:00] VITALS: BP 122/83
[2022-05-09] MEDS: OLANZAPINE 10MG TABLET PO SCH (20:11)
[2022-05-10] VITALS (7 sets, daily range): BP systolic 94–122; BP diastolic 61–89
[2022-05-10] MEDS: SODIUM CHLORIDE 0.9% 1,000 ML IV SCH ×2 (01:36→16:45)
[2022-05-10] MEDS: HYDROCODONE/ACETAMINOPHEN 5/325MG TABLET PO PRN ×2 (04:35→10:19)
[2022-05-10] MEDS: BACITRACIN 15GM TUBE TOP SCH ×2 (05:17→18:00)
[2022-05-10] MEDS: DOCUSATE SODIUM SUGAR FREE 100MG/10ML UDC NG SCH (10:17)
[2022-05-10] MEDS: OLANZAPINE 5MG TABLET PO SCH (10:18)
[2022-05-10] MEDS: HALOPERIDOL LACTATE 5MG/ML VIAL IM PRN (17:11)
[2022-05-10] MEDS ORDERED: OLAN10TA3 MT ×2 (19:30→19:33)
[2022-05-10] MEDS ORDERED: OLAN5TAB3 MT (19:33)
[2022-05-10] MEDS ORDERED: FAMO-135 MT (19:33)
[2022-05-10] MEDS: FAMOTIDINE 20MG TABLET PO SCH (23:22)
[2022-05-10] MEDS: OLANZAPINE 10MG TABLET PO SCH (23:23)
[2022-05-11 00:18] VITALS: BP 123/70
== END 2022-05-11 00:24 | DRG 347 ==
LOC: ER 13:29 → 7WST 17:31 → ENRESERV 22:23 → 7WST 03-29 19:31 → 6EST 04-13 02:06
PROVIDERS: ADMIT Internal Medicine; ATTEND Internal Medicine
PROC: 4A00X4Z Measurement of Central Nervous Electrical Activity, External Approach (ICD-10-PCS; principal; 2022-03-28)
DX: M48.56XA Collapsed vertebra, not elsewhere classified, lumbar region, initial encounter for fracture (principal); G92.8 Other toxic encephalopathy; F29 Unspecified psychosis not due to a substance or known physiological condition; E87.5 Hyperkalemia; F10.10 Alcohol abuse, uncomplicated; M48.02 Spinal stenosis, cervical region; I10 Essential (primary) hypertension; Y90.9 Presence of alcohol in blood, level not specified; J45.909 Unspecified asthma, uncomplicated; R56.9 Unspecified convulsions; T50.905A Adverse effect of unspecified drugs, medicaments and biological substances, initial encounter; Z20.822 Contact with and (suspected) exposure to COVID-19; F17.200 Nicotine dependence, unspecified, uncomplicated; K21.9 Gastro-esophageal reflux disease without esophagitis; G89.29 Other chronic pain; Z90.49 Acquired absence of other specified parts of digestive tract; Z78.1 Physical restraint status; Z79.891 Long term (current) use of opiate analgesic; Z79.899 Other long term (current) drug therapy; Z91.81 History of falling; Y92.89 Other specified places as the place of occurrence of the external cause
CPT/HCPCS: 36415; 36600; 70551; 71045; 72141; 72146; 72148; 76700; 80048; 80053; 80076; 80156; 80165; 80305; 81003; 82140; 82375; 82542; 82607; 82746; 82805; 83735; 83880; 84100; 84132; 84145; 84484; 85025; 86592; 87077; 87186; 87389; 87426; 93005; 93970; 95816; 97110; 97116; 97162; 97164; 97166; 97530; 97535; 99285; A6261; C1893; J0290; J0360; J0696; J1200; J1630; J2270; J2310; J3411; J3420; J3475; J3480; J7030; J7040; J7060

== ENCOUNTER 2022-08-05 07:20 | Inpatient (IN) | payer MEDICAID ==
[~2022-08-05] VITALS: Ht 154.9 cm; Wt 89.4 kg
[~2022-08-05 07:20] MED LIST changes: -ALBU18HF2 IH; +FAMO-135 MT; -FLUT1DIS3 INH; -HYDR-4001 PO; +IBUP-2029 PO; -IPRA3AMP9 NEB; -LOSA100T32 MT; +OLAN10TA3 MT; +OLAN5TAB3 MT; -OMEP40CA20 MT; -ONDA4TAB50 MT; +TRAM50TA3 MT
[2022-08-05] MEDS ORDERED: IBUPROFEN 400MG TABLET PO ONE (08:45)
[2022-08-05] MEDS ORDERED: ACETAMINOPHEN 325MG TABLET PO ONE (08:45)
[2022-08-05] MEDS: LIDOCAINE 5% PATCH TOP SCH (09:06)
[2022-08-05 09:43] LABS: BASOPHILS % 0.8 % (0.0-2.0); EOSINOPHILS % 1.8 % (0.0-5.0); HEMATOCRIT. 44.3 % (36.0-48.0); HEMOGLOBIN. 14.8 g/dL (12.0-16.0); LYMPHOCYTES % 30.3 % (20.0-50.0); MEAN CORPUSCULAR HEMOGLOBIN 28.4 pg (28.0-32.0); MEAN CORPUSCULAR VOLUME 85.1 fL (81.0-99.0); MEAN PLATELET VOLUME 9.5 fl (7.4-10.4); MONOCYTES % 5.3 % (2.0-8.0); NEUTROPHILS % 61.8 % (40.0-76.0); PLATELET 268 x1000/uL (130-400); RED CELL DISTRIBUTION WIDTH 17.7 % (11.6-14.6)
[2022-08-05 09:51] LABS: CHLORIDE 102 mEq/L (98-107)
[2022-08-05] MEDS ORDERED: MORPHINE SULFATE 4 MG/ML CPJ (NOT FOR IM USE) IV ONE (11:30)
[2022-08-05 16:00] VITALS: BP 146/90
[2022-08-05] MEDS ORDERED: ONDANSETRON HCL 4MG/2ML INJ IV PRN (18:45)
[2022-08-05] MEDS ORDERED: NALOXONE HCL 0.4MG/ML VIAL IV PRN (19:00)
[2022-08-05] MEDS: HYDROCODONE/ACETAMINOPHEN 5/325MG TABLET PO PRN (19:55)
[2022-08-05 20:00] VITALS: BP 151/79
[2022-08-05 20:40] VITALS: BP 132/85
[2022-08-06] VITALS: BP 129/75
[2022-08-06] MEDS: HYDROCODONE/ACETAMINOPHEN 5/325MG TABLET PO PRN ×5 (00:22→20:58)
[2022-08-06 00:31] LABS: CLARITY URINE CLOUDY (CLEAR); COLOR URINE DARK YELLOW (YELLOW); KETONES URINE TRACE (NEGATIVE); LEUKOCYTE ESTERASE URINE TRACE (NEGATIVE); NITRITE URINE NEGATIVE (NEGATIVE); OCCULT BLOOD URINE NEGATIVE (NEGATIVE); PH URINE 5.5 (4.5-8.0); PROTEIN URINE 1+ (NEGATIVE); SPECIFIC GRAVITY URINE 1.034 (1.005-1.030)
[2022-08-06 04:00] VITALS: BP 90/50
[2022-08-06] MEDS: LIDOCAINE 5% PATCH TOP SCH (08:29)
[2022-08-06] MEDS: AMLODIPINE 10MG TABLET PO SCH (08:32)
[2022-08-06] MEDS ORDERED: ENOXAPARIN 30MG/0.3ML SYR SUBCUT SCH (14:00)
[2022-08-06 20:00] VITALS: BP 101/57
[2022-08-06] MEDS: ENOXAPARIN 40MG/0.4ML SYR SUBCUT SCH (20:57)
[2022-08-07] MEDS: HYDROCODONE/ACETAMINOPHEN 5/325MG TABLET PO PRN ×5 (01:02→20:24)
[2022-08-07] MEDS: AMLODIPINE 10MG TABLET PO SCH (08:59)
[2022-08-07 09:38] VITALS: BP 120/68
[2022-08-07 12:00] VITALS: BP 112/77
[2022-08-07 16:00] VITALS: BP 102/57
[2022-08-07 20:00] VITALS: BP 112/84
[2022-08-07] MEDS: ENOXAPARIN 40MG/0.4ML SYR SUBCUT SCH (20:20)
[2022-08-08] VITALS: BP 116/78
[2022-08-08] MEDS: HYDROCODONE/ACETAMINOPHEN 5/325MG TABLET PO PRN ×4 (00:49→22:22)
[2022-08-08 04:00] VITALS: BP 122/77
[2022-08-08 08:00] VITALS: BP 112/72
[2022-08-08] MEDS: AMLODIPINE 10MG TABLET PO SCH (09:14)
[2022-08-08] MEDS ORDERED: ONDANSETRON HCL 4MG/2ML INJ IV PRN (09:15)
[2022-08-08 12:00] VITALS: BP 112/80
[2022-08-08 16:00] VITALS: BP 136/82
[2022-08-08 20:00] VITALS: BP 118/77
[2022-08-08] MEDS: ENOXAPARIN 40MG/0.4ML SYR SUBCUT SCH (21:04)
[2022-08-09] VITALS: BP 109/64
[2022-08-09 04:00] VITALS: BP 112/68
[2022-08-09] MEDS: HYDROCODONE/ACETAMINOPHEN 5/325MG TABLET PO PRN ×3 (05:31→19:44)
[2022-08-09 08:18] VITALS: BP 100/62
[2022-08-09] MEDS: AMLODIPINE 10MG TABLET PO SCH (08:19)
[2022-08-09 12:00] VITALS: BP 87/59
[2022-08-09 16:00] VITALS: BP 115/78
[2022-08-09] MEDS: ACETAMINOPHEN 325MG TABLET PO PRN (17:05)
[2022-08-09 20:00] VITALS: BP 102/66
[2022-08-09] MEDS: ENOXAPARIN 40MG/0.4ML SYR SUBCUT SCH (20:56)
[2022-08-10] VITALS: BP 100/68
[2022-08-10] MEDS: HYDROCODONE/ACETAMINOPHEN 5/325MG TABLET PO PRN ×5 (01:29→23:19)
[2022-08-10 04:00] VITALS: BP 108/66
[2022-08-10 08:00] VITALS: BP 97/55
[2022-08-10] MEDS: AMLODIPINE 10MG TABLET PO SCH (09:00)
[2022-08-10 12:00] VITALS: BP 115/83
[2022-08-10 16:00] VITALS: BP 139/82
[2022-08-10 20:00] VITALS: BP 119/83
[2022-08-10] MEDS: ENOXAPARIN 40MG/0.4ML SYR SUBCUT SCH (20:20)
[2022-08-10] MEDS: ACETAMINOPHEN 325MG TABLET PO PRN (20:20)
[2022-08-10] MEDS ORDERED: NALOXONE HCL 0.4MG/ML VIAL IV PRN (23:15)
[2022-08-11] VITALS: BP 120/76
[2022-08-11] MEDS: HYDROCODONE/ACETAMINOPHEN 5/325MG TABLET PO PRN ×5 (03:13→20:39)
[2022-08-11 04:00] VITALS: BP 118/68
[2022-08-11] MEDS: AMLODIPINE 10MG TABLET PO SCH (08:44)
[2022-08-11 12:00] VITALS: BP 93/57
[2022-08-11 15:54] VITALS: BP 113/60
[2022-08-11 20:00] VITALS: BP 95/76
[2022-08-11] MEDS: ENOXAPARIN 40MG/0.4ML SYR SUBCUT SCH (20:43)
[2022-08-12] MEDS: HYDROCODONE/ACETAMINOPHEN 5/325MG TABLET PO PRN ×5 (02:57→20:37)
[2022-08-12 08:00] VITALS: BP 94/62
[2022-08-12] MEDS: AMLODIPINE 10MG TABLET PO SCH (09:00)
[2022-08-12] MEDS: LEVETIRACETAM 500MG TABLET PO SCH ×2 (09:15→17:00)
[2022-08-12] MEDS ORDERED: GUAIFENESIN 200MG/10ML SUGAR FREE UDC PO PRN (11:30)
[2022-08-12 12:00] VITALS: BP 122/78
[2022-08-12 12:30] LABS: BASOPHILS % 1.1 % (0.0-2.0); EOSINOPHILS % 1.9 % (0.0-5.0); HEMATOCRIT. 42.3 % (36.0-48.0); HEMOGLOBIN. 13.8 g/dL (12.0-16.0); LYMPHOCYTES % 50.3 % (20.0-50.0); MEAN CORPUSCULAR HEMOGLOBIN 27.9 pg (28.0-32.0); MEAN CORPUSCULAR VOLUME 85.2 fL (81.0-99.0); MEAN PLATELET VOLUME 9.9 fl (7.4-10.4); MONOCYTES % 14.3 % (2.0-8.0); NEUTROPHILS % 32.4 % (40.0-76.0); PLATELET 310 x1000/uL (130-400); RED BLOOD CELL COUNT 4.96 mill/uL (4.2-5.4); RED CELL DISTRIBUTION WIDTH 17.8 % (11.6-14.6)
[2022-08-12 12:42] LABS: CHLORIDE 104 mEq/L (98-107)
[2022-08-12] MEDS ORDERED: IPRATROPIUM/ALBUTEROL 0.5-3(2.5)MG/3ML NEB HHN PRN (13:45)
[2022-08-12] MEDS ORDERED: ALBUTEROL (0.083%) 2.5MG/3ML NEB HHN PRN (14:00)
[2022-08-12] MEDS ORDERED: IPRATROPIUM BROMIDE (0.02%) 0.5MG/2.5ML NEB HHN PRN (14:00)
[2022-08-12 16:00] VITALS: BP 115/74
[2022-08-12 20:00] VITALS: BP 90/58
[2022-08-12] MEDS: ENOXAPARIN 40MG/0.4ML SYR SUBCUT SCH (20:37)
[2022-08-13] VITALS: BP 132/87
[2022-08-13] MEDS: HYDROCODONE/ACETAMINOPHEN 5/325MG TABLET PO PRN ×5 (01:04→20:07)
[2022-08-13 08:00] VITALS: BP 104/60
[2022-08-13] MEDS: AMLODIPINE 10MG TABLET PO SCH (09:00)
[2022-08-13] MEDS: LEVETIRACETAM 500MG TABLET PO SCH (09:00)
[2022-08-13 11:54] VITALS: BP 138/81
[2022-08-13 15:41] VITALS: BP 106/52
[2022-08-13 20:00] VITALS: BP 105/67
[2022-08-13] MEDS: ENOXAPARIN 40MG/0.4ML SYR SUBCUT SCH (20:08)
[2022-08-14] VITALS: BP 110/67
[2022-08-14] MEDS: HYDROCODONE/ACETAMINOPHEN 5/325MG TABLET PO PRN ×5 (00:15→20:46)
[2022-08-14 04:00] VITALS: BP 132/86
[2022-08-14 08:00] VITALS: BP_SYST 116; BP_SYST 121; BP_DIAS 60; BP_DIAS 83
[2022-08-14] MEDS: LEVETIRACETAM 500MG TABLET PO SCH ×3 (09:21→17:00)
[2022-08-14] MEDS: AMLODIPINE 10MG TABLET PO SCH (09:23)
[2022-08-14] MEDS: ENOXAPARIN 30MG/0.3ML SYR SUBCUT SCH ×2 (09:25→20:46)
[2022-08-14 12:00] VITALS: BP 102/60
[2022-08-14 16:00] VITALS: BP 127/87
[2022-08-14 21:00] VITALS: BP 117/47
[2022-08-15] MEDS: HYDROCODONE/ACETAMINOPHEN 5/325MG TABLET PO PRN ×4 (02:49→20:54)
[2022-08-15 04:00] VITALS: BP 90/47
[2022-08-15 08:00] VITALS: BP 114/73
[2022-08-15] MEDS: AMLODIPINE 10MG TABLET PO SCH (08:52)
[2022-08-15] MEDS: LEVETIRACETAM 500MG TABLET PO SCH ×2 (08:52→17:00)
[2022-08-15] MEDS: ENOXAPARIN 30MG/0.3ML SYR SUBCUT SCH ×2 (08:53→20:54)
[2022-08-15 12:00] VITALS: BP 110/59
[2022-08-15 16:00] VITALS: BP 107/58
[2022-08-15 20:00] VITALS: BP 102/58
[2022-08-16] VITALS: BP 99/50
[2022-08-16] MEDS: HYDROCODONE/ACETAMINOPHEN 5/325MG TABLET PO PRN ×5 (01:05→20:02)
[2022-08-16 04:00] VITALS: BP 109/80
[2022-08-16 08:00] VITALS: BP 103/58
[2022-08-16] MEDS: AMLODIPINE 10MG TABLET PO SCH (09:00)
[2022-08-16] MEDS: LEVETIRACETAM 500MG TABLET PO SCH ×2 (09:00→17:00)
[2022-08-16] MEDS: ENOXAPARIN 30MG/0.3ML SYR SUBCUT SCH ×2 (09:33→20:01)
[2022-08-16 12:00] VITALS: BP 114/62
[2022-08-16 16:00] VITALS: BP 122/60
[2022-08-16 16:22] VITALS: BP 122/60
[2022-08-17] MEDS: HYDROCODONE/ACETAMINOPHEN 5/325MG TABLET PO PRN ×5 (00:10→21:18)
[2022-08-17 04:00] VITALS: BP 101/55
[2022-08-17 08:00] VITALS: BP 99/62
[2022-08-17] MEDS: AMLODIPINE 10MG TABLET PO SCH (09:00)
[2022-08-17] MEDS: LEVETIRACETAM 500MG TABLET PO SCH ×2 (09:53→17:00)
[2022-08-17] MEDS: ENOXAPARIN 30MG/0.3ML SYR SUBCUT SCH ×2 (10:02→21:17)
[2022-08-17 12:00] VITALS: BP 94/59
[2022-08-17 16:00] VITALS: BP 105/60
[2022-08-17 20:00] VITALS: BP 112/76
[2022-08-18] VITALS: BP 95/65
[2022-08-18] MEDS: HYDROCODONE/ACETAMINOPHEN 5/325MG TABLET PO PRN ×5 (02:36→21:39)
[2022-08-18 04:00] VITALS: BP 114/75
[2022-08-18 08:00] VITALS: BP 99/66
[2022-08-18] MEDS: AMLODIPINE 10MG TABLET PO SCH (09:33)
[2022-08-18] MEDS: LEVETIRACETAM 500MG TABLET PO SCH ×2 (09:33→16:58)
[2022-08-18] MEDS: ENOXAPARIN 30MG/0.3ML SYR SUBCUT SCH ×2 (09:33→21:39)
[2022-08-18 12:00] VITALS: BP 104/55
[2022-08-18 16:00] VITALS: BP 107/53
[2022-08-19] MEDS: HYDROCODONE/ACETAMINOPHEN 5/325MG TABLET PO PRN ×5 (02:52→22:10)
[2022-08-19] MEDS: ENOXAPARIN 30MG/0.3ML SYR SUBCUT SCH ×2 (08:12→22:08)
[2022-08-19] MEDS: LEVETIRACETAM 500MG TABLET PO SCH ×2 (08:16→16:50)
[2022-08-19] MEDS: AMLODIPINE 10MG TABLET PO SCH (08:16)
[2022-08-19 09:01] LABS: BASOPHILS % 2.5 % (0.0-2.0); HEMATOCRIT. 40.6 % (36.0-48.0); HEMOGLOBIN. 13.2 g/dL (12.0-16.0); LYMPHOCYTES % 59.6 % (20.0-50.0); MEAN CORPUSCULAR HEMOGLOBIN 27.5 pg (28.0-32.0); MEAN CORPUSCULAR VOLUME 84.5 fL (81.0-99.0); MEAN PLATELET VOLUME 9.7 fl (7.4-10.4); MONOCYTES % 4.2 % (2.0-8.0); NEUTROPHILS % 30.7 % (40.0-76.0); PLATELET 344 x1000/uL (130-400); RED BLOOD CELL COUNT 4.81 mill/uL (4.2-5.4); RED CELL DISTRIBUTION WIDTH 17.9 % (11.6-14.6)
[2022-08-19 09:26] LABS: CHLORIDE 107 mEq/L (98-107)
[2022-08-19 20:00] VITALS: BP 107/61
[2022-08-20] VITALS: BP 109/63
[2022-08-20 04:00] VITALS: BP 112/66
[2022-08-20] MEDS: HYDROCODONE/ACETAMINOPHEN 5/325MG TABLET PO PRN ×4 (05:11→20:48)
[2022-08-20 08:00] VITALS: BP 137/74
[2022-08-20] MEDS: AMLODIPINE 10MG TABLET PO SCH (09:37)
[2022-08-20] MEDS: ENOXAPARIN 30MG/0.3ML SYR SUBCUT SCH ×2 (09:39→20:44)
[2022-08-20] MEDS: LEVETIRACETAM 500MG TABLET PO SCH ×2 (10:32→17:58)
[2022-08-20 12:00] VITALS: BP 115/66
[2022-08-20 16:00] VITALS: BP 122/68
[2022-08-21] MEDS: HYDROCODONE/ACETAMINOPHEN 5/325MG TABLET PO PRN ×3 (06:47→15:10)
[2022-08-21] MEDS: LEVETIRACETAM 500MG TABLET PO SCH (10:54)
[2022-08-21] MEDS: AMLODIPINE 10MG TABLET PO SCH (10:54)
[2022-08-21] MEDS: ENOXAPARIN 30MG/0.3ML SYR SUBCUT SCH (10:55)
[2022-08-21 15:10] VITALS: BP 105/60
== END 2022-08-21 18:18 | DRG 347 ==
LOC: ER 07:20 → 6EST 12:52 → EDBEDREQTM 12:54 → EDBEDREQ 12:54 → ER 15:08
PROVIDERS: ADMIT Internal Medicine; ATTEND Internal Medicine
DX: M48.56XA Collapsed vertebra, not elsewhere classified, lumbar region, initial encounter for fracture (principal); G82.50 Quadriplegia, unspecified; E66.9 Obesity, unspecified; G89.29 Other chronic pain; I10 Essential (primary) hypertension; M48.02 Spinal stenosis, cervical region; J45.909 Unspecified asthma, uncomplicated; M54.10 Radiculopathy, site unspecified; K21.9 Gastro-esophageal reflux disease without esophagitis; Z20.822 Contact with and (suspected) exposure to COVID-19; R26.2 Difficulty in walking, not elsewhere classified; Z74.01 Bed confinement status; Z79.899 Other long term (current) drug therapy; Z68.37 Body mass index [BMI] 37.0-37.9, adult
CPT/HCPCS: 36415; 71045; 72148; 80048; 80053; 81003; 84484; 85025; 87426; 93005; 97116; 97162; 97166; 97530; 97535; 99285; C1893; J1650; J2270; J2405

== ENCOUNTER 2022-10-11 01:28 | Emergency (ER) | payer MEDICAID ==
[~2022-10-11] VITALS: Ht 170.2 cm; Wt 90.0 kg
[~2022-10-11 01:28] MED LIST changes: -ARIP5TAB58 PO; -CARB200T6 PO; -LEVE750T10 PO; -OLAN10TA3 MT; -OLAN5TAB3 MT
[2022-10-11 01:30] VITALS: BP 156/87
== END 2022-10-11 02:04 | disposition home or self-care (01) ==
LOC: ER 01:44
DX: G89.29 Other chronic pain (principal); M54.9 Dorsalgia, unspecified
CPT/HCPCS: 99283

== ENCOUNTER 2023-11-23 16:40 | Emergency (ER) | payer MEDICAID ==
[~2023-11-23] VITALS: Ht 167.6 cm; Wt 77.0 kg
[2023-11-23 16:41] VITALS: O2SAT 94
[2023-11-23 17:40] VITALS: TEMP 98.3
[2023-11-23] MEDS: LIDOCAINE 5% PATCH TOP SCH (17:48)
[2023-11-23] MEDS: HYDROCODONE/ACETAMINOPHEN 5/325MG TABLET PO ONE (17:48)
[2023-11-23 20:41] VITALS: BP 133/84; PULSE 85; RESP 18
[2023-11-23] MEDS: KETOROLAC 30MG/ML VIAL IM NR (20:41)
[2023-11-23] MEDS: METHOCARBAMOL 500MG TABLET PO ONE (20:42)
[2023-11-23] MEDS ORDERED: METH-653 MT (20:46)
[2023-11-23] MEDS ORDERED: LIDO700A30 TP (20:46)
== END 2023-11-23 22:30 | disposition home or self-care (01) ==
LOC: ER 16:40
DX: M54.6 Pain in thoracic spine (principal); J44.9 Chronic obstructive pulmonary disease, unspecified; K21.9 Gastro-esophageal reflux disease without esophagitis; I10 Essential (primary) hypertension; Z79.899 Other long term (current) drug therapy; W18.39XA Other fall on same level, initial encounter; Y93.89 Activity, other specified; Y92.89 Other specified places as the place of occurrence of the external cause; Y99.8 Other external cause status
CPT/HCPCS: 71100; 96372; 99284; J1885; Z7610

== ENCOUNTER 2024-01-08 11:11 | Emergency (ER) | payer MEDICAID ==
[~2024-01-08] VITALS: Ht 167.6 cm; Wt 82.0 kg
[~2024-01-08 11:11] MED LIST changes: +ACET167L14 PO; +AMLO5TAB4 PO; +CELE-116 PO; -IBUP-2029 PO; +LEVE10006 PO; +PROC-1 PO; +TIZA-204 PO
[2024-01-08 11:12] VITALS: O2SAT 97
[2024-01-08 12:00] VITALS: TEMP 98.6
[2024-01-08 12:04] VITALS: BP 107/56; PULSE 114; RESP 15
[2024-01-08] MEDS: MORPHINE SULFATE 4 MG/ML INJ (FOR IV/IM USE) IM ONE (12:04)
== END 2024-01-08 14:14 | disposition home or self-care (01) ==
LOC: ER 11:11
DX: S22.089A Unspecified fracture of T11-T12 vertebra, initial encounter for closed fracture (principal); S32.019A Unspecified fracture of first lumbar vertebra, initial encounter for closed fracture; J44.9 Chronic obstructive pulmonary disease, unspecified; K21.9 Gastro-esophageal reflux disease without esophagitis; I10 Essential (primary) hypertension; Z88.6 Allergy status to analgesic agent; W18.39XA Other fall on same level, initial encounter; Y93.89 Activity, other specified; Y92.89 Other specified places as the place of occurrence of the external cause; Y99.8 Other external cause status
CPT/HCPCS: 96372; 99283; J2270; Z7610

== ENCOUNTER 2024-09-18 07:21 | Inpatient (IN) | payer MEDICAID, MEDICARE ==
[~2024-09-18] VITALS: Ht 157.5 cm; Wt 79.9 kg
[~2024-09-18 07:21] MED LIST changes: -ACET167L14 PO; -AMLO5TAB4 PO; +AMLO5TAB5 PO
[2024-09-18] MEDS: HYDRALAZINE 20MG/ML VIAL IV ONE (08:29)
[2024-09-18 08:43] LABS: BASOPHILS % 1.4 % (0.0-2.0); DIFFERENTIAL COMMENT 0; EOSINOPHILS % 2.9 % (0.0-5.0); HEMATOCRIT. 41.9 % (36.0-48.0); HEMOGLOBIN. 13.9 g/dL (12.0-16.0); LYMPHOCYTES % 28.4 % (20.0-50.0); MEAN CORPUSCULAR HEMOGLOBIN 30.1 pg (28.0-32.0); MEAN CORPUSCULAR VOLUME 91.2 fL (81.0-99.0); MEAN PLATELET VOLUME 9.4 fl (7.4-10.4); NEUTROPHILS % 61.3 % (40.0-76.0); PLATELET 220 x1000/uL (130-400); RED CELL DISTRIBUTION WIDTH 18.2 % (11.6-14.6); WHITE BLOOD COUNT 6.7 x1000/uL (4.5-11.0)
[2024-09-18 08:50] LABS: CHLORIDE 105 mEq/L (98-107); POTASSIUM 4.1 mEq/L (3.5-5.1); SODIUM 144 mEq/L (136-145)
[2024-09-18 08:51] LABS: CALCIUM 10.4 mg/dL (8.7-10.4); CARBON DIOXIDE 27 mEq/L (21-32)
[2024-09-18 08:55] LABS: CREATININE 0.6 mg/dL (0.6-1.0)
[2024-09-18 08:56] LABS: GLUCOSE 162 mg/dL (70-105); UREA NITROGEN BLOOD 20 mg/dL (9-23)
[2024-09-18 08:58] LABS: TROPONIN I HIGH SENSITIVITY < 4 ng/L (3.0-34)
[2024-09-18 10:37] VITALS: BP 139/88; PULSE 95; RESP 18; TEMP 36.6; O2SAT 94
[2024-09-18] MEDS ORDERED: CLONIDINE 0.1MG TABLET PO PRN (12:00)
[2024-09-18] MEDS ORDERED: IPRATROPIUM/ALBUTEROL 0.5-3(2.5)MG/3ML NEB NEB PRN (12:00)
[2024-09-18] MEDS ORDERED: ZOLPIDEM TARTRATE 5MG TABLET PO PRN (12:00)
[2024-09-18] MEDS ORDERED: NALOXONE HCL 0.4MG/ML VIAL IV PRN (12:00)
[2024-09-18] MEDS ORDERED: IPRATROPIUM/ALBUTEROL 0.5-3(2.5)MG/3ML NEB HHN PRN (12:00)
[2024-09-18] MEDS: SODIUM CHLORIDE 0.9% 1,000 ML IV SCH (12:00)
[2024-09-18] MEDS ORDERED: ACETAMINOPHEN 325MG TABLET PO PRN (12:00)
[2024-09-18] MEDS: AMLODIPINE 5MG TABLET PO SCH (12:11)
[2024-09-18] MEDS: ONDANSETRON HCL 4MG/2ML INJ IV PRN (12:12)
[2024-09-18] MEDS: ENOXAPARIN 40MG/0.4ML SYR SUBCUT SCH (12:12)
[2024-09-18] MEDS: HYDROCODONE/ACETAMINOPHEN 5/325MG TABLET PO PRN (12:29)
[2024-09-18 13:27] VITALS: BP 133/88; PULSE 79; RESP 19; TEMP 36.2
[2024-09-18] MEDS ORDERED: ONDANSETRON HCL 4MG/2ML INJ IV PRN (16:00)
[2024-09-18 16:44] VITALS: BP 135/85; PULSE 80; RESP 18; TEMP 36.5; O2SAT 97
[2024-09-18] MEDS ORDERED: MECLIZINE 25MG TABLET PO SCH (18:45)
[2024-09-18 20:00] VITALS: BP 122/72; PULSE 70; RESP 18; TEMP 36.7; O2SAT 100
[2024-09-18] MEDS: MECLIZINE 25MG TABLET PO SCH (21:31)
[2024-09-18] MEDS: LEVETIRACETAM 500MG/5ML CUP PO SCH (21:31)
[2024-09-18 22:55] LABS: TROPONIN I HIGH SENSITIVITY < 4 ng/L (3.0-34)
[2024-09-19] VITALS: BP 125/73; PULSE 72; RESP 18; TEMP 36.7; O2SAT 98
[2024-09-19 04:00] VITALS: BP 118/55; PULSE 78; RESP 19; TEMP 36.8; O2SAT 99
[2024-09-19 07:49] LABS: DIFFERENTIAL COMMENT 0; HEMATOCRIT. 35.8 % (36.0-48.0); HEMOGLOBIN. 11.7 g/dL (12.0-16.0); LYMPHOCYTES % 49.9 % (20.0-50.0); MEAN CORPUSCULAR HEMOGLOBIN 29.9 pg (28.0-32.0); MEAN CORPUSCULAR HGB CONC 32.7 g/dL (31.0-37.0); MEAN CORPUSCULAR VOLUME 91.4 fL (81.0-99.0); MEAN PLATELET VOLUME 9.9 fl (7.4-10.4); MONOCYTES % 5.9 % (2.0-8.0); NEUTROPHILS % 40.2 % (40.0-76.0); PLATELET 182 x1000/uL (130-400); RED BLOOD CELL COUNT 3.91 mill/uL (4.2-5.4); RED CELL DISTRIBUTION WIDTH 18.2 % (11.6-14.6); WHITE BLOOD COUNT 5.1 x1000/uL (4.5-11.0)
[2024-09-19 08:00] VITALS: BP 116/88; PULSE 64; RESP 17; TEMP 36.5; O2SAT 96
[2024-09-19 08:01] LABS: CARBON DIOXIDE 28 mEq/L (21-32); CHLORIDE 102 mEq/L (98-107); POTASSIUM 3.8 mEq/L (3.5-5.1); SODIUM 142 mEq/L (136-145)
[2024-09-19 08:02] LABS: CALCIUM 9.8 mg/dL (8.7-10.4)
[2024-09-19 08:07] LABS: CREATININE 0.8 mg/dL (0.6-1.0); GLUCOSE 77 mg/dL (70-105); UREA NITROGEN BLOOD 21 mg/dL (9-23)
[2024-09-19 08:34] LABS: TROPONIN I HIGH SENSITIVITY < 4 ng/L (3.0-34)
[2024-09-19] MEDS: PANTOPRAZOLE SODIUM 40 MG/VIAL IV SCH (09:10)
[2024-09-19] MEDS: CELECOXIB 200MG CAPSULE PO SCH (09:11)
[2024-09-19 12:00] VITALS: BP 126/60; PULSE 88; RESP 18; TEMP 36.5; O2SAT 100
[2024-09-19 16:00] VITALS: BP 139/73; PULSE 83; RESP 18; TEMP 36.5; O2SAT 100
[2024-09-19 20:00] VITALS: BP 102/61; PULSE 72; RESP 18; TEMP 36.1; O2SAT 96
[2024-09-19 20:45] LABS: *AMPHETAMINES SCREEN URINE NEGATIVE (NEGATIVE); *BARBITURATES SCREEN URINE NEGATIVE (NEGATIVE); *BENZODIAZEPINES SCREEN URINE NEGATIVE (NEGATIVE); CLARITY URINE CLEAR (CLEAR); COLOR URINE YELLOW (YELLOW); GLUCOSE URINE NEGATIVE (NEGATIVE); KETONES URINE NEGATIVE (NEGATIVE); NITRITE URINE NEGATIVE (NEGATIVE); OCCULT BLOOD URINE NEGATIVE (NEGATIVE); PROTEIN URINE NEGATIVE (NEGATIVE); UROBILINOGEN URINE 0.2 E.U./dL (0.2-1.0)
[2024-09-19 20:46] LABS: *COCAINE SCREEN URINE NEGATIVE (NEGATIVE); CANNABINOID URINE SCREEN NEGATIVE (NEGATIVE); ECSTASY MDMA SCREEN URINE NEGATIVE (NEGATIVE); LEUKOCYTE ESTERASE URINE NEGATIVE (NEGATIVE); METHADONE URINE SCREEN NEGATIVE (NEGATIVE); OPIATES URINE SCREEN PRESUMPTIVE POSITIVE (NEGATIVE); PHENCYCLIDINE URINE SCREEN NEGATIVE (NEGATIVE)
[2024-09-20] VITALS: BP 94/56; PULSE 69; RESP 20; TEMP 36.3; O2SAT 100
[2024-09-20 04:00] VITALS: BP 116/74; PULSE 60; RESP 20; TEMP 36.1; O2SAT 96
[2024-09-20 08:00] VITALS: BP 122/75; PULSE 62; RESP 18; TEMP 36.6; O2SAT 96
[2024-09-20 08:32] LABS: BASOPHILS % 1.6 % (0.0-2.0); DIFFERENTIAL COMMENT 0; EOSINOPHILS % 6.6 % (0.0-5.0); HEMATOCRIT. 37.1 % (36.0-48.0); HEMOGLOBIN. 11.8 g/dL (12.0-16.0); LYMPHOCYTES % 49.1 % (20.0-50.0); MEAN CORPUSCULAR HEMOGLOBIN 29.3 pg (28.0-32.0); MEAN CORPUSCULAR HGB CONC 31.7 g/dL (31.0-37.0); MEAN CORPUSCULAR VOLUME 92.5 fL (81.0-99.0); MEAN PLATELET VOLUME 9.7 fl (7.4-10.4); MONOCYTES % 6.4 % (2.0-8.0); NEUTROPHILS % 36.3 % (40.0-76.0); PLATELET 165 x1000/uL (130-400); RED BLOOD CELL COUNT 4.01 mill/uL (4.2-5.4); WHITE BLOOD COUNT 4.4 x1000/uL (4.5-11.0)
[2024-09-20 08:45] LABS: CARBON DIOXIDE 27 mEq/L (21-32); CHLORIDE 104 mEq/L (98-107); POTASSIUM 4.1 mEq/L (3.5-5.1); SODIUM 141 mEq/L (136-145)
[2024-09-20 08:46] LABS: CALCIUM 9.4 mg/dL (8.7-10.4)
[2024-09-20 08:50] LABS: CREATININE 0.8 mg/dL (0.6-1.0)
[2024-09-20 08:51] LABS: GLUCOSE 86 mg/dL (70-105); UREA NITROGEN BLOOD 22 mg/dL (9-23)
[2024-09-20] MEDS ORDERED: MECL-299 MT (11:24)
[2024-09-20 11:57] VITALS: BP 122/75; PULSE 62; TEMP 97.8; O2SAT 96
== END 2024-09-20 12:45 | disposition home or self-care (01) | DRG 111 ==
LOC: ER 07:21 → 8WST 09:27
PROVIDERS: ADMIT Internal Medicine; ATTEND Internal Medicine
DX: H81.10 Benign paroxysmal vertigo, unspecified ear (principal); I67.82 Cerebral ischemia; R56.9 Unspecified convulsions; I10 Essential (primary) hypertension; I16.0 Hypertensive urgency; J44.9 Chronic obstructive pulmonary disease, unspecified; K21.9 Gastro-esophageal reflux disease without esophagitis; R53.81 Other malaise; Z74.01 Bed confinement status; Z99.3 Dependence on wheelchair; Z88.8 Allergy status to other drugs, medicaments and biological substances; Z79.899 Other long term (current) drug therapy
CPT/HCPCS: 36415; 71045; 80048; 80305; 81003; 83880; 84484; 85025; 93005; 93306; 93970; 99285; A4606; J0360; J1650; J2405; J2470; J7030; J8597